=== PATIENT | female | born 1940 | race Caucasian/White ===

== ENCOUNTER 2017-10-11 10:05 | Emergency (ER) | payer MEDICARE, OTHER ==
--- NOTE | 2017-10-11 11:00 | EDM.PDOC ---
ED HPI GENERAL MEDICAL PROBLEM - General Chief Complaint: Back Pain or Injury Stated Complaint: BODYACHES Time Seen by Provider: 10/11/17 10:20 Source of Information: Reports: Patient History Limitations: Reports: No Limitations - History of Present Illness INITIAL COMMENTS - FREE TEXT/NARRATIVE: HISTORY AND PHYSICAL: History of present illness: Patient is a 77-year-old female who presents to the emergency room with complaints of low back pain. She states a week and a half ago she helped her up off the floor and used them proper body mechanics and started to have low back pain. Pain does not radiate (localized to lumbar area). Denies any numbness or tingling to extremities. Since that time she has had intermittent bouts of pain that waxes and wanes and appears to be more painful while performing her job duties (works at [employer]). She has been seeing a chiropractor who recommended she come to the emergency room for evaluation and pain management. She states she had some left over oxycodone from Dr. Christ Paez but does not like taking this medication as it makes "me looney". She denies any recent falls, trauma or injury. Denies any fever, chills, chest pain , shortness of breath or cough. Denies any visual changes, headache or diaphoresis. Denies any abdominal pain, nausea, vomiting, diarrhea, constipation or dysuria. Review of systems: As per history of present illness and below otherwise all systems reviewed and negative. Past medical history: As per history of present illness and as reviewed below otherwise noncontributory. Surgical history: As per history of present illness and as reviewed below otherwise noncontributory. Social history: No reported history of drug or alcohol abuse. Family history: As per history of present illness and as reviewed below otherwise noncontributory. Physical exam: General: Well-developed and well-nourished 77-year-old female. Alert and oriented. Nontoxic appearing and in no acute distress. HEENT: Atraumatic, normocephalic, pupils equal and reactive bilaterally, negative for conjunctival pallor or scleral icterus, hard of hearing and does wear hearing aid, mucous membranes moist, throat clear, neck supple, nontender, trachea midline. No drooling or trismus noted. No meningeal signs Lungs: Clear to auscultation, breath sounds equal bilaterally, chest nontender. Heart: S1S2, regular rate and rhythm without overt murmur Abdomen: Soft, nondistended, nontender. Negative for masses or hepatosplenomegaly. Negative for costovertebral tenderness. Pelvis: Stable nontender. Genitourinary: Deferred. Rectal: Deferred. Skin: Intact, warm, dry. No lesions or rashes noted. C-spine/Back: Patient does have kyphosis (normal variance). No pinpoint vertebral tenderness upon palpation. No crepitus, step-offs or obvious deformities. No fecal or urinary incontinence. Patient is ambulatory, slow movements, but without any difficulty. Extremities: Atraumatic, negative for cords or calf pain. Neurovascular unremarkable. Neuro: Awake, alert, oriented. Cranial nerves II through XII unremarkable. Cerebellum unremarkable. Motor and sensory unremarkable throughout. Exam nonfocal. Notes: During the interview the patient is very front dictation all and does not like to be asked multiple questions. She would like to receive pain medications and be discharged. I did ask that we do a lumbar x-ray at this time, she is reluctant but agreeable. Patient declines x-ray and would like to be discharged to home. We discussed appropriate follow-up with her primary care provider, she is agreeable. She does have oxycodone available to her at home but states this medication is too strong. We'll give her a limited amount of tramadol (#15, NRF) for pain management. She voices understanding and is agreeable to plan of care. Denies any further questions at this time. Diagnostics: Lumbar x-ray (declines) Therapeutics: Toradol IM Impression: Back Pain Plan: 1. Tylenol and/or ibuprofen as needed for pain management. Tramadol may be taken every 4-6 hours as needed. This medication may cause drowsiness so do not take it while driving or needing to be functioning outside of the house. 2. Please use proper body mechanics while performing her job duties or lifting. 3. Follow-up with your primary care provider, Dr. Christ Paez in the next 1-2 days. Return to the ED as needed and as discussed. Definitive disposition and diagnosis as appropriate pending reevaluation and review of above. Duration: Day(s): Location: Reports: Back Back Pain Score (Numeric/FACES): 10 - Related Data Allergies Allergy/AdvReac Type Severity Reaction Status Date / Time Sulfa (Sulfonamide Allergy Hives Verified 03/27/14 10:51 Antibiotics) Home Meds: Home Meds Acetaminophen with Codeine [Tylenol with Codeine #3 Tablet] 1 each PO TID #10 tablet 03/27/14 [Rx] Ciprofloxacin/Hydrocortisone [Cipro HC Otic Susp] 1 drop OT BID #1 bottle [Rx] Hydrochlorothiazide 25 mg PO DAILY 03/27/14 [History] Lansoprazole [Prevacid] 30 mg PO DAILY 03/27/14 [History] Metoprolol Succinate [Toprol XL] 50 mg PO DAILY 03/27/14 [History] ED ROS GENERAL - Review of Systems Review Of Systems: ROS reveals no pertinent complaints other than HPI. ED EXAM,LOWER BACK PAIN/INJURY - Physical Exam Exam: See Below (See dictation) Course - Vital Signs Last Recorded V/S: Last Vital Signs Temp 97.4 F 10/11/17 10:53 Pulse 74 10/11/17 10:53 Resp 18 10/11/17 10:53 BP 139/105 H 10/11/17 10:53 Pulse Ox 97 10/11/17 10:53 - Orders/Labs/Meds Orders: Active Orders 24 hr Category Date Time Status Lumbar Spine 2 or 3V [CR] Stat Exams 10/11/17 10:53 Ordered Meds: Medications Discontinued Medications Generic Name Dose Route Start Last Admin Trade Name Abdiasq PRN Reason Stop Dose Admin Ketorolac Tromethamine 30 mg 10/11/17 11:39 10/11/17 11:46 Toradol IM 10/11/17 11:40 30 mg ONETIME ONE Administration Departure - Departure Time of Disposition: 11:56 Disposition: Home, Self-Care 01 Clinical Impression: Back pain Qualifiers: Back pain location: low back pain Chronicity: unspecified Back pain laterality : midline Sciatica presence: without sciatica Qualified Code(s): M54.5 - Low back pain - Discharge Information Instructions: Back Pain, Adult, [id number] Referrals: PCP,None [Primary Care Provider] - Forms: ED Department Discharge Additional Instructions: The following information is given to patients seen in the emergency department who are being discharged to home. This information is to outline your options for follow-up care. We provide all patients seen in our emergency department with a follow-up referral. The need for follow-up, as well as the timing and circumstances, are variable depending upon the specifics of your emergency department visit. If you don't have a primary care physician on staff, we will provide you with a referral. We always advise you to contact your personal physician following an emergency department visit to inform them of the circumstance of the visit and for follow-up with them and/or the need for any referrals to a consulting specialist. The emergency department will also refer you to a specialist when appropriate. This referral assures that you have the opportunity for follow-up care with a specialist. All of these measure are taken in an effort to provide you with optimal care, which includes your follow-up. Under all circumstances we always encourage you to contact your private physician who remains a resource for coordinating your care. When calling for follow-up care, please make the office aware that this follow-up is from your recent emergency room visit. If for any reason you are refused follow-up, please contact the [facility] Emergency Department at and asked to speak to the emergency department charge nurse. [facility] [address] [place] [address] 1. Tylenol and/or ibuprofen as needed for pain management. Tramadol may be taken every 4-6 hours as needed. This medication may cause drowsiness so do not take it while driving or needing to be functioning outside of the house. 2. Please use proper body mechanics while performing her job duties or lifting. 3. Follow-up with your primary care provider, Dr. Christ Paez in the next 1-2 days. Return to the ED as needed and as discussed. - My Orders Last 24 Hours: My Active Orders 10/11/17 10:53 Lumbar Spine 2 or 3V [CR] Stat - Assessment/Plan Last 24 Hours: My Active Orders 10/11/17 10:53 Lumbar Spine 2 or 3V [CR] Stat
[2017-10-11] MEDS ORDERED: Ketorolac 30 MG/ML SDV IM ONE (11:39)
== END 2017-10-11 12:10 | disposition home or self-care (01) ==
LOC: MW.ED 10:05
DX: M54.5 Low back pain (principal); Z88.2 Allergy status to sulfonamides; Z79.899 Other long term (current) drug therapy
CPT/HCPCS: 96372; 99283; J1885

== ENCOUNTER 2018-09-25 02:53 | Emergency (ER) | payer MEDICARE, OTHER ==
[2018-09-25] MEDS ORDERED: Aluminum Hydroxide/Magnesium Hydroxide/Simethicone Susp 30 ML Cup ONE (03:28)
[2018-09-25] MEDS ORDERED: Ondansetron 4 MG/2 ML SDV ONE (03:28)
[2018-09-25] MEDS ORDERED: Metoclopramide Oral Soln 10 MG/10 ML UD Cup ONE (03:28)
[2018-09-25] MEDS ORDERED: Lidocaine 2% Viscous Solution 15 ML Cup ONE (03:29)
== END 2018-09-25 09:11 | disposition home or self-care (01) ==
LOC: MW.ED 02:53
DX: K52.9 Noninfective gastroenteritis and colitis, unspecified (principal); E86.0 Dehydration
CPT/HCPCS: 96361; 96374; 99282; 99284-25

== ENCOUNTER 2018-10-23 07:10 | Observation (INO) | payer MEDICARE, OTHER ==
--- NOTE | 2018-10-23 07:30 | EDM.PDOC ---
ED HPI GENERAL MEDICAL PROBLEM - General Chief Complaint: Respiratory Problem Stated Complaint: SIDE PAIN Time Seen by Provider: 10/23/18 07:21 - History of Present Illness INITIAL COMMENTS - FREE TEXT/NARRATIVE: HISTORY AND PHYSICAL: History of present illness: Patient's a 78-year-old white female history of hypertension who presents with concern of cough with posttussive emesis had some mild shortness of breath she occasionally has chest pain with this cough otherwise denies no reported fever chills or other complaints. She somewhat poor historian due to advanced age. She did not receive influenza immunization this year. Review of systems: As per history of present illness and below otherwise all systems reviewed and negative. Past medical history: As per history of present illness and as reviewed below otherwise noncontributory. Surgical history: As per history of present illness and as reviewed below otherwise noncontributory. Social history: No reported history of drug or alcohol abuse. Family history: As per history of present illness and as reviewed below otherwise noncontributory. Physical exam: HEENT: Atraumatic, normocephalic, pupils reactive, negative for conjunctival pallor or scleral icterus, mucous membranes moist, throat clear, neck supple, nontender, trachea midline. Lungs: Slightly coarse, breath sounds equal bilaterally, chest nontender. Heart: S1S2, regular, negative for clicks, rubs, or JVD. Abdomen: Soft, nondistended, nontender. Negative for masses or hepatosplenomegaly. Negative for costovertebral tenderness. Pelvis: Stable nontender. Genitourinary: Deferred. Rectal: Deferred. Extremities: Atraumatic, negative for cords or calf pain. Neurovascular unremarkable. Neuro: Awake, alert, oriented. Cranial nerves II through XII unremarkable. Cerebellum unremarkable. Motor and sensory unremarkable throughout. Exam nonfocal. Diagnostics: CBC CMP troponin PT/INR BNP influenza screen UA blood culture 2 lactic acid chest x-ray EKG Therapeutics: IV O2 monitor Impression: #1 dyspnea #2 pneumonitis #3 history of hypertension #4 history of posttussive emesis #5 atypical chest pain Definitive disposition and diagnosis as appropriate pending reevaluation and review of above. - Related Data Allergies Allergy/AdvReac Type Severity Reaction Status Date / Time Sulfa (Sulfonamide Allergy Hives Verified 10/23/18 07:26 Antibiotics) Home Meds: Home Meds hydroCHLOROthiazide [Hydrochlorothiazide] 25 mg PO DAILY 03/27/14 [History] Multivitamin [Multivitamins] 1 tab PO DAILY 09/25/18 [History] Past Medical History Musculoskeletal History: Reports: Back Pain, Chronic Social & Family History - Caffeine Use Caffeine Use: Reports: Other ED ROS GENERAL - Review of Systems Review Of Systems: ROS reveals no pertinent complaints other than HPI. ED EXAM, GENERAL - Physical Exam Exam: See Below (See dictation) Course - Vital Signs Last Recorded V/S: Last Vital Signs Temp 37.0 C 10/23/18 07:27 Pulse 106 H 10/23/18 07:27 Resp 16 10/23/18 07:27 BP 134/82 10/23/18 07:27 Pulse Ox 95 10/23/18 08:16 - Orders/Labs/Meds Orders: Active Orders 24 hr Category Date Time Status Cardiac Monitoring [RC] . DIRECTED Care 10/23/18 07:18 Active EKG Documentation Completion [RC] STAT Care 10/23/18 07:18 Active Oxygen Therapy, ED [RC] ASDIRECTED Care 10/23/18 08:17 Active B-TYPE NATRIURETIC PEPTIDE,BNP [CHEM] Stat Lab 10/23/18 08:14 Received CULTURE BLOOD [BC] Stat Lab 10/23/18 07:36 Received CULTURE BLOOD [BC] Stat Lab 10/23/18 08:14 Received Blood Culture x2 Reflex Set [OM.PC] Stat Oth 10/23/18 07:18 Ordered Labs: Laboratory Tests 10/23/18 10/23/18 10/23/18 Range/Units 07:36 07:36 07:36 WBC 13.91 H (4.0-11.0) K/uL RBC 3.77 L (4.30-5.90) M/uL Hgb 12.0 (12.0-16.0) g/dL Hct 37.2 (36.0-46.0) % MCV 98.7 H (80.0-98.0) fL MCH 31.8 (27.0-32.0) pg MCHC 32.3 (31.0-37.0) g/dL RDW Std Deviation 55.4 (28.0-62.0) fl RDW Coeff of Neris 15 (11.0-15.0) % Plt Count 228 (150-400) K/uL MPV 10.20 (7.40-12.00) fL Neut % (Auto) 85.7 H (48.0-80.0) % Lymph % (Auto) 7.5 L (16.0-40.0) % [place] % (Auto) 6.5 (0.0-15.0) % Eos % (Auto) 0.1 (0.0-7.0) % Baso % (Auto) 0.2 (0.0-1.5) % Neut # (Auto) 11.9 H (1.4-5.7) K/uL Lymph # (Auto) 1.0 (0.6-2.4) K/uL [place] # (Auto) 0.9 H (0.0-0.8) K/uL Eos # (Auto) 0.0 (0.0-0.7) K/uL Baso # (Auto) 0.0 (0.0-0.1) K/uL Nucleated RBC % 0.0 /100WBC Nucleated RBCs # 0 K/uL INR 1.02 Lactate 1.1 (0.20-2.00) mmol/L Sodium (136-145) mmol/L Potassium (3.5-5.1) mmol/L Chloride (98-107) mmol/L Carbon Dioxide (21.0-32.0) mmol/L BUN (7.0-18.0) mg/dL Creatinine (0.6-1.0) mg/dL Est Cr Clr Drug Dosing mL/min Estimated GFR (MDRD) ml/min Glucose (74-106) mg/dL Calcium (8.5-10.1) mg/dL Total Bilirubin (0.2-1.0) mg/dL AST (15-37) IU/L ALT (14-63) IU/L Alkaline Phosphatase (46-116) U/L Troponin I (0.000-0.056) ng/mL Total Protein (6.4-8.2) g/dL Albumin (3.4-5.0) g/dL Globulin (2.6-4.0) g/dL Albumin/Globulin Ratio (0.9-1.6) Urine Color Urine Appearance Urine pH (5.0-8.0) Ur Specific [place] (1.001-1.035) Urine Protein (NEGATIVE) mg/dL Urine Glucose (UA) (NEGATIVE) mg/dL Urine Ketones (NEGATIVE) mg/dL Urine Occult Blood (NEGATIVE) Urine Nitrite (NEGATIVE) Urine Bilirubin (NEGATIVE) Urine Urobilinogen (<2.0) EU/dL Ur Leukocyte Esterase (NEGATIVE) Urine RBC (0-2/HPF) Urine WBC (0-5/HPF) Ur Epithelial Cells (NONE-FEW) Urine Bacteria (NEGATIVE) 10/23/18 10/23/18 Range/Units 07:36 09:30 WBC (4.0-11.0) K/uL RBC (4.30-5.90) M/uL Hgb (12.0-16.0) g/dL Hct (36.0-46.0) % MCV (80.0-98.0) fL MCH (27.0-32.0) pg MCHC (31.0-37.0) g/dL RDW Std Deviation (28.0-62.0) fl RDW Coeff of Neris (11.0-15.0) % Plt Count (150-400) K/uL MPV (7.40-12.00) fL Neut % (Auto) (48.0-80.0) % Lymph % (Auto) (16.0-40.0) % [place] % (Auto) (0.0-15.0) % Eos % (Auto) (0.0-7.0) % Baso % (Auto) (0.0-1.5) % Neut # (Auto) (1.4-5.7) K/uL Lymph # (Auto) (0.6-2.4) K/uL [place] # (Auto) (0.0-0.8) K/uL Eos # (Auto) (0.0-0.7) K/uL Baso # (Auto) (0.0-0.1) K/uL Nucleated RBC % /100WBC Nucleated RBCs # K/uL INR Lactate (0.20-2.00) mmol/L Sodium 137 (136-145) mmol/L Potassium 3.0 L (3.5-5.1) mmol/L Chloride 95 L (98-107) mmol/L Carbon Dioxide 30.0 (21.0-32.0) mmol/L BUN 27 H (7.0-18.0) mg/dL Creatinine 1.1 H (0.6-1.0) mg/dL Est Cr Clr Drug Dosing 26.73 mL/min Estimated GFR (MDRD) 47.9 ml/min Glucose 139 H (74-106) mg/dL Calcium 9.1 (8.5-10.1) mg/dL Total Bilirubin 0.7 (0.2-1.0) mg/dL AST 19 (15-37) IU/L ALT 16 (14-63) IU/L Alkaline Phosphatase 111 (46-116) U/L Troponin I < 0.050 (0.000-0.056) ng/mL Total Protein 8.0 (6.4-8.2) g/dL Albumin 3.2 L (3.4-5.0) g/dL Globulin 4.8 H (2.6-4.0) g/dL Albumin/Globulin Ratio 0.7 L (0.9-1.6) Urine Color YELLOW Urine Appearance CLEAR Urine pH 5.5 (5.0-8.0) Ur Specific [place] 1.025 (1.001-1.035) Urine Protein TRACE H (NEGATIVE) mg/dL Urine Glucose (UA) NEGATIVE (NEGATIVE) mg/dL Urine Ketones NEGATIVE (NEGATIVE) mg/dL Urine Occult Blood TRACE-LYSED H (NEGATIVE) Urine Nitrite NEGATIVE (NEGATIVE) Urine Bilirubin NEGATIVE (NEGATIVE) Urine Urobilinogen 1.0 (<2.0) EU/dL Ur Leukocyte Esterase NEGATIVE (NEGATIVE) Urine RBC 0-2 (0-2/HPF) Urine WBC 0-2 (0-5/HPF) Ur Epithelial Cells FEW (NONE-FEW) Urine Bacteria FEW (NEGATIVE) Departure - Departure Time of Disposition: 09:59 Disposition: Refer to Observation Condition: Good Clinical Impression: Pneumonia - Discharge Information Referrals: PCP,None [Primary Care Provider] - Forms: ED Department Discharge - My Orders Last 24 Hours: My Active Orders 10/23/18 07:18 Cardiac Monitoring [RC] . DIRECTED EKG Documentation Completion [RC] STAT Blood Culture x2 Reflex Set [OM.PC] Stat 10/23/18 07:36 CULTURE BLOOD [BC] Stat 10/23/18 08:14 B-TYPE NATRIURETIC PEPTIDE,BNP [CHEM] Stat CULTURE BLOOD [BC] Stat 10/23/18 08:17 Oxygen Therapy, ED [RC] ASDIRECTED - Assessment/Plan Last 24 Hours: My Active Orders 10/23/18 07:18 Cardiac Monitoring [RC] . DIRECTED EKG Documentation Completion [RC] STAT Blood Culture x2 Reflex Set [OM.PC] Stat 10/23/18 07:36 CULTURE BLOOD [BC] Stat 10/23/18 08:14 B-TYPE NATRIURETIC PEPTIDE,BNP [CHEM] Stat CULTURE BLOOD [BC] Stat 10/23/18 08:17 Oxygen Therapy, ED [RC] ASDIRECTED
--- NOTE | 2018-10-23 07:55 | CR ---
INDICATION: Chest pain. Impression : One AP view. Mild leftward curve thoracic spine likely in part positional. Prominent central pulmonary arteries. Peripheral pulmonary artery is normal. Faint hazy opacity in the right upper lobe abutting the minor fissure could be some pneumonia. Two-view chest or CT recommended for further characterization. Dictated by Mati Jensen MD @ Oct 23 2018 7:53AM Signed by Dr. Mati Jensen @ Oct 23 2018 7:53AM
[2018-10-23 08:10] LABS: CHLORIDE,CL 95 mmol/L (98-107); SODIUM,NA 137 mmol/L (136-145)
[2018-10-23] MEDS ORDERED: Levofloxacin/Dextrose 5%-Water 750 MG in Premix Bag 1 BAG IV ONE (10:01)
[2018-10-23] MEDS ORDERED: Sodium Chloride 0.9% 2.5 ML Syringe FLUSH PRN (11:16)
[2018-10-23] MEDS ORDERED: Sodium Chloride 0.9% 10 ML Syringe FLUSH PRN (11:16)
[2018-10-23] MEDS ORDERED: Sodium Chloride 0.9% with KCl 1,000 ML IV SCH (14:30)
[2018-10-23] MEDS ORDERED: Ondansetron 4 MG/2 ML SDV IVPUSH PRN (14:49)
[2018-10-23] MEDS: Acetaminophen 325 MG Tab PO PRN ×2 (14:55→21:20)
--- NOTE | 2018-10-23 15:00 | PCM.HP ---
H&P History of Present Illness - General Date of Service: 10/23/18 Admit Problem/Dx: Admission Diagnosis/Problem Admission Diagnosis/Problem Pneumonia - History of Present Illness Initial Comments - Free Text/Narative: 78 yo female with pmh of hypertension who presented with cough productive of green sputum. Patient reports she would cough so hard she would vomit. She was found to have a leukocytosis of 13,910. She also reports subjective fevers and myalgias. In the ED CXR reported haziness in right upper lobe. chest Pain Score (Numeric/FACES): 4 - Related Data Allergies/Adverse Reactions: Allergies Allergy/AdvReac Type Severity Reaction Status Date / Time Sulfa (Sulfonamide Allergy Hives Verified 10/23/18 07:26 Antibiotics) Home Medications: Home Meds hydroCHLOROthiazide [Hydrochlorothiazide] 25 mg PO DAILY 03/27/14 [History] Multivitamin [Multivitamins] 1 tab PO DAILY 09/25/18 [History] Past Medical History HEENT History: Reports: Hard of Hearing, Impaired Vision Cardiovascular History: Reports: Hypertension Gastrointestinal History: Reports: Hiatal Hernia Musculoskeletal History: Reports: Back Pain, Chronic - Past Surgical History HEENT Surgical History: Reports: None Cardiovascular Surgical History: Reports: None GI Surgical History: Reports: None Musculoskeletal Surgical History: Reports: None Social & Family History - Family History Family Medical History: Noncontributory - Tobacco Use Smoking Status *Q: Unknown Ever Smoked - Caffeine Use Caffeine Use: Reports: Other - Recreational Drug Use Recreational Drug Use Frequency: Patient Refuses To Answer H&P Review of Systems - Review of Systems: Review Of Systems: ROS reveals no pertinent complaints other than HPI. Exam - Exam Exam: See Below - Vital Signs Vital Signs: Last Vital Signs Temp 37.7 C 10/23/18 10:45 Pulse 118 H 10/23/18 10:45 Resp 18 10/23/18 10:45 BP 114/76 10/23/18 10:45 Pulse Ox 93 L 10/23/18 10:45 Weight: 40.823 kg - Exam General: Alert HEENT: Mucosa Moist & Green Neck: Supple Lungs: Normal Respiratory Effort, Decreased Breath Sounds Cardiovascular: Regular Rate, Regular Rhythm GI/Abdominal Exam: Soft, Non-Tender Extremities: Non-Tender, No Pedal Edema Skin: Warm, Dry, Intact - Patient Data Lab Results Last 24 hrs: Laboratory Results - last 24 hr 10/23/18 10/23/18 10/23/18 Range/Units 07:36 07:36 07:36 WBC 13.91 H (4.0-11.0) K/uL RBC 3.77 L (4.30-5.90) M/uL Hgb 12.0 (12.0-16.0) g/dL Hct 37.2 (36.0-46.0) % MCV 98.7 H (80.0-98.0) fL MCH 31.8 (27.0-32.0) pg MCHC 32.3 (31.0-37.0) g/dL RDW Std Deviation 55.4 (28.0-62.0) fl RDW Coeff of Neris 15 (11.0-15.0) % Plt Count 228 (150-400) K/uL MPV 10.20 (7.40-12.00) fL Neut % (Auto) 85.7 H (48.0-80.0) % Lymph % (Auto) 7.5 L (16.0-40.0) % [place] % (Auto) 6.5 (0.0-15.0) % Eos % (Auto) 0.1 (0.0-7.0) % Baso % (Auto) 0.2 (0.0-1.5) % Neut # (Auto) 11.9 H (1.4-5.7) K/uL Lymph # (Auto) 1.0 (0.6-2.4) K/uL [place] # (Auto) 0.9 H (0.0-0.8) K/uL Eos # (Auto) 0.0 (0.0-0.7) K/uL Baso # (Auto) 0.0 (0.0-0.1) K/uL Nucleated RBC % 0.0 /100WBC Nucleated RBCs # 0 K/uL INR 1.02 Lactate 1.1 (0.20-2.00) mmol/L Sodium (136-145) mmol/L Potassium (3.5-5.1) mmol/L Chloride (98-107) mmol/L Carbon Dioxide (21.0-32.0) mmol/L BUN (7.0-18.0) mg/dL Creatinine (0.6-1.0) mg/dL Est Cr Clr Drug Dosing mL/min Estimated GFR (MDRD) ml/min Glucose (74-106) mg/dL Calcium (8.5-10.1) mg/dL Total Bilirubin (0.2-1.0) mg/dL AST (15-37) IU/L ALT (14-63) IU/L Alkaline Phosphatase (46-116) U/L Troponin I (0.000-0.056) ng/mL B-Natriuretic Peptide (<100) PG/ML Total Protein (6.4-8.2) g/dL Albumin (3.4-5.0) g/dL Globulin (2.6-4.0) g/dL Albumin/Globulin Ratio (0.9-1.6) Urine Color Urine Appearance Urine pH (5.0-8.0) Ur Specific [place] (1.001-1.035) Urine Protein (NEGATIVE) mg/dL Urine Glucose (UA) (NEGATIVE) mg/dL Urine Ketones (NEGATIVE) mg/dL Urine Occult Blood (NEGATIVE) Urine Nitrite (NEGATIVE) Urine Bilirubin (NEGATIVE) Urine Urobilinogen (<2.0) EU/dL Ur Leukocyte Esterase (NEGATIVE) Urine RBC (0-2/HPF) Urine WBC (0-5/HPF) Ur Epithelial Cells (NONE-FEW) Urine Bacteria (NEGATIVE) 10/23/18 10/23/18 10/23/18 Range/Units 07:36 08:14 09:30 WBC (4.0-11.0) K/uL RBC (4.30-5.90) M/uL Hgb (12.0-16.0) g/dL Hct (36.0-46.0) % MCV (80.0-98.0) fL MCH (27.0-32.0) pg MCHC (31.0-37.0) g/dL RDW Std Deviation (28.0-62.0) fl RDW Coeff of Neris (11.0-15.0) % Plt Count (150-400) K/uL MPV (7.40-12.00) fL Neut % (Auto) (48.0-80.0) % Lymph % (Auto) (16.0-40.0) % [place] % (Auto) (0.0-15.0) % Eos % (Auto) (0.0-7.0) % Baso % (Auto) (0.0-1.5) % Neut # (Auto) (1.4-5.7) K/uL Lymph # (Auto) (0.6-2.4) K/uL [place] # (Auto) (0.0-0.8) K/uL Eos # (Auto) (0.0-0.7) K/uL Baso # (Auto) (0.0-0.1) K/uL Nucleated RBC % /100WBC Nucleated RBCs # K/uL INR Lactate (0.20-2.00) mmol/L Sodium 137 (136-145) mmol/L Potassium 3.0 L (3.5-5.1) mmol/L Chloride 95 L (98-107) mmol/L Carbon Dioxide 30.0 (21.0-32.0) mmol/L BUN 27 H (7.0-18.0) mg/dL Creatinine 1.1 H (0.6-1.0) mg/dL Est Cr Clr Drug Dosing 26.73 mL/min Estimated GFR (MDRD) 47.9 ml/min Glucose 139 H (74-106) mg/dL Calcium 9.1 (8.5-10.1) mg/dL Total Bilirubin 0.7 (0.2-1.0) mg/dL AST 19 (15-37) IU/L ALT 16 (14-63) IU/L Alkaline Phosphatase 111 (46-116) U/L Troponin I < 0.050 (0.000-0.056) ng/mL B-Natriuretic Peptide 55 (<100) PG/ML Total Protein 8.0 (6.4-8.2) g/dL Albumin 3.2 L (3.4-5.0) g/dL Globulin 4.8 H (2.6-4.0) g/dL Albumin/Globulin Ratio 0.7 L (0.9-1.6) Urine Color YELLOW Urine Appearance CLEAR Urine pH 5.5 (5.0-8.0) Ur Specific [place] 1.025 (1.001-1.035) Urine Protein TRACE H (NEGATIVE) mg/dL Urine Glucose (UA) NEGATIVE (NEGATIVE) mg/dL Urine Ketones NEGATIVE (NEGATIVE) mg/dL Urine Occult Blood TRACE-LYSED H (NEGATIVE) Urine Nitrite NEGATIVE (NEGATIVE) Urine Bilirubin NEGATIVE (NEGATIVE) Urine Urobilinogen 1.0 (<2.0) EU/dL Ur Leukocyte Esterase NEGATIVE (NEGATIVE) Urine RBC 0-2 (0-2/HPF) Urine WBC 0-2 (0-5/HPF) Ur Epithelial Cells FEW (NONE-FEW) Urine Bacteria FEW (NEGATIVE) Result Diagrams: 10/24/18 05:52 10/24/18 05:52 Rodolfo Results Last 24 hrs: Microbiology 10/23/18 07:38 Influenza Type A Antigen Screen - Final Nasopharyngeal Swab NEGATIVE INFLUENZA A VIRUS AG REFERENCE RANGE: NEGATIVE Influenza Type B Antigen Screen - Final NEGATIVE INFLUENZA B VIRUS AG REFERENCE RANGE: NEGATIVE Problem List Initiated/Reviewed/Updated: Yes Orders Last 24hrs: Active Orders 24 hr Category Date Time Status Patient Status [ADT] Stat ADT 10/23/18 10:02 Active Cardiac Monitoring [RC] . DIRECTED Care 10/23/18 07:18 Active Oxygen Therapy [RC] PRN Care 10/23/18 14:49 Ordered Telemetry Monitoring [Cardiac Monitoring] [RC] . Care 10/23/18 11:55 Active DIRECTED Up ad Jazmyn [RC] ASDIRECTED Care 10/23/18 14:49 Ordered VTE/DVT Education [RC] PER UNIT ROUTINE Care 10/23/18 14:49 Ordered Vital Signs [RC] Q4H Care 10/23/18 14:49 Ordered Regular Diet [DIET] Diet 10/23/18 Lunch Active BASIC METABOLIC PANEL,BMP [CHEM] AM Lab 10/24/18 05:11 Ordered CBC WITH AUTO DIFF [HEME] AM Lab 10/24/18 05:11 Ordered CULTURE BLOOD [BC] Stat Lab 10/23/18 07:36 Received CULTURE BLOOD [BC] Stat Lab 10/23/18 08:14 Received CULTURE SPUTUM + SMEAR [RM] Stat Lab 10/23/18 14:49 Ordered Acetaminophen [Tylenol] Med 10/23/18 14:27 Active 650 mg PO Q6H PRN Heparin Sodium Med 10/23/18 15:00 Ordered 5,000 units SUBCUT Q12H Levofloxacin/Dextrose 5%-Water [Levaquin in D5W 750 MG/ Med 10/24/18 10:00 Ordered 150 ML] 750 mg Premix Bag 1 bag IV Q24H Ondansetron [Zofran] Med 10/23/18 14:49 Ordered 4 mg IVPUSH Q4H PRN Sodium Chloride 0.9% [Saline Flush] Med 10/23/18 11:16 Active 10 ml FLUSH ASDIRECTED PRN Sodium Chloride 0.9% [Saline Flush] Med 10/23/18 11:16 Active 2.5 ml FLUSH ASDIRECTED PRN Sodium Chloride 0.9% with KCl [Normal Saline with 40 Med 10/23/18 14:30 Active mEq KCl] 1,000 ml IV ASDIRECTED Blood Culture x2 Reflex Set [OM.PC] Stat Oth 10/23/18 07:18 Ordered Convert IV to Saline Lock [OM.PC] Routine Oth 10/23/18 11:16 Ordered Resuscitation Status Routine Resus Stat 10/23/18 14:49 Ordered Medication Orders Acetaminophen (Tylenol) 650 mg PO Q6H PRN PRN Reason: Pain Heparin Sodium (Porcine) (Heparin Sodium) 5,000 units SUBCUT Q12H MARY Potassium Chloride/Sodium Chloride (Normal Saline With 40 Meq Kcl) 1,000 mls @ 75 mls/hr IV ASDIRECTED MARY Stop: 10/24/18 03:49 Levofloxacin/Dextrose 750 mg/ (Premix) 150 mls @ 100 mls/hr IV Q24H MARY Ondansetron HCl (Zofran) 4 mg IVPUSH Q4H PRN PRN Reason: Nausea Sodium Chloride (Saline Flush) 10 ml FLUSH ASDIRECTED PRN PRN Reason: Keep Vein Open Sodium Chloride (Saline Flush) 2.5 ml FLUSH ASDIRECTED PRN PRN Reason: Keep Vein Open Assessment/Plan Comment:: 78 yo female admitted for community acquired pneumonia. We will treat with Levaquin.
[2018-10-23] MEDS: Heparin Sodium 5,000 Units/ML Vial SUBCUT SCH (15:32)
[2018-10-24] MEDS: traMADol 50 MG Tab PO PRN ×2 (03:36→20:35)
[2018-10-24] MEDS: Heparin Sodium 5,000 Units/ML Vial SUBCUT SCH ×2 (03:36→15:16)
[2018-10-24 06:44] LABS: CHLORIDE,CL 102 mmol/L (98-107); SODIUM,NA 139 mmol/L (136-145)
[2018-10-24] MEDS: Acetaminophen 325 MG Tab PO PRN ×3 (07:45→22:01)
[2018-10-24] MEDS ORDERED: Potassium Chloride 10% 20 MEQ/15 ML Soln 30 ML UD Cup PO ONE (07:55)
[2018-10-24] MEDS ORDERED: Levofloxacin/Dextrose 5%-Water 750 MG in Premix Bag 1 BAG IV SCH (10:00)
[2018-10-24] MEDS: guaiFENesin 100 MG/5 ML Soln 5 ML UD Cup PO PRN ×2 (10:14→23:09)
--- NOTE | 2018-10-24 10:15 | PCM.PN ---
- General Info Date of Service: 10/24/18 Subjective Update: Complaining of a dry cough, feels like she has sputum stuck and is having a hard time coughing it out. Doesnt feel short of breath. No fever, nausea or vomiting. Complains of R sided discomfort when she coughs. - Review of Systems General: Reports: Other (see hpi) - Patient Data Vitals - Most Recent: Last Vital Signs Temp 37.8 C 10/24/18 07:00 Pulse 84 10/24/18 07:00 Resp 16 10/24/18 07:00 BP 116/77 10/24/18 07:00 Pulse Ox 93 L 10/24/18 09:56 Weight - Most Recent: 40.823 kg I&O - Last 24 Hours: Intake & Output 10/23/18 10/24/18 10/24/18 22:59 06:59 14:59 Intake Total 240 490 Output Total 150 300 Balance 90 190 Lab Results Last 24 Hours: Laboratory Results - last 24 hr 10/23/18 10/24/18 10/24/18 Range/Units 08:14 05:52 05:52 WBC 11.01 H (4.0-11.0) K/uL RBC 3.33 L (4.30-5.90) M/uL Hgb 10.4 L (12.0-16.0) g/dL Hct 32.8 L (36.0-46.0) % MCV 98.5 H (80.0-98.0) fL MCH 31.2 (27.0-32.0) pg MCHC 31.7 (31.0-37.0) g/dL RDW Std Deviation 54.0 (28.0-62.0) fl RDW Coeff of Neris 15 (11.0-15.0) % Plt Count 209 (150-400) K/uL MPV 10.00 (7.40-12.00) fL Neut % (Auto) 84.4 H (48.0-80.0) % Lymph % (Auto) 8.0 L (16.0-40.0) % [place] % (Auto) 7.3 (0.0-15.0) % Eos % (Auto) 0.0 (0.0-7.0) % Baso % (Auto) 0.3 (0.0-1.5) % Neut # (Auto) 9.3 H (1.4-5.7) K/uL Lymph # (Auto) 0.9 (0.6-2.4) K/uL [place] # (Auto) 0.8 (0.0-0.8) K/uL Eos # (Auto) 0.0 (0.0-0.7) K/uL Baso # (Auto) 0.0 (0.0-0.1) K/uL Nucleated RBC % 0.0 /100WBC Nucleated RBCs # 0 K/uL Sodium 139 (136-145) mmol/L Potassium 3.4 L (3.5-5.1) mmol/L Chloride 102 (98-107) mmol/L Carbon Dioxide 28.7 (21.0-32.0) mmol/L BUN 23 H (7.0-18.0) mg/dL Creatinine 0.9 (0.6-1.0) mg/dL Est Cr Clr Drug Dosing 32.66 mL/min Estimated GFR (MDRD) > 60.0 ml/min Glucose 143 H (74-106) mg/dL Calcium 8.6 (8.5-10.1) mg/dL B-Natriuretic Peptide 55 (<100) PG/ML Rodolfo Results Last 24 Hours: Microbiology 10/23/18 08:14 Aerobic Blood Culture - Preliminary Blood - Venous - Lab Draw NO GROWTH AFTER 1 DAY Anaerobic Blood Culture - Preliminary NO GROWTH AFTER 1 DAY 10/23/18 07:36 Aerobic Blood Culture - Preliminary Blood - Venous NO GROWTH AFTER 1 DAY Anaerobic Blood Culture - Preliminary NO GROWTH AFTER 1 DAY 10/23/18 07:38 Influenza Type A Antigen Screen - Final Nasopharyngeal Swab NEGATIVE INFLUENZA A VIRUS AG REFERENCE RANGE: NEGATIVE Influenza Type B Antigen Screen - Final NEGATIVE INFLUENZA B VIRUS AG REFERENCE RANGE: NEGATIVE Med Orders - Current: Current Medications Acetaminophen (Tylenol) 650 mg PO Q6H PRN PRN Reason: Pain Last Admin: 10/24/18 07:45 Dose: 650 mg Guaifenesin (Robitussin) 200 mg PO Q4H PRN PRN Reason: Cough Heparin Sodium (Porcine) (Heparin Sodium) 5,000 units SUBCUT Q12H MARY Last Admin: 10/24/18 03:36 Dose: 5,000 units Levofloxacin/Dextrose 750 mg/ (Premix) 150 mls @ 100 mls/hr IV Q48H [facility] Ondansetron HCl (Zofran) 4 mg IVPUSH Q4H PRN PRN Reason: Nausea Sodium Chloride (Saline Flush) 10 ml FLUSH ASDIRECTED PRN PRN Reason: Keep Vein Open Sodium Chloride (Saline Flush) 2.5 ml FLUSH ASDIRECTED PRN PRN Reason: Keep Vein Open Tramadol HCl (Ultram) 50 mg PO Q6H PRN PRN Reason: Pain Last Admin: 10/24/18 03:36 Dose: 50 mg Discontinued Medications Levofloxacin/Dextrose 750 mg/ (Premix) 150 mls @ 100 mls/hr IV ONETIME ONE Stop: 10/23/18 11:30 Last Admin: 10/23/18 10:13 Dose: 100 mls/hr Potassium Chloride/Sodium Chloride (Normal Saline With 40 Meq Kcl) 1,000 mls @ 75 mls/hr IV ASDIRECTED MARY Stop: 10/24/18 03:49 Last Admin: 10/23/18 14:55 Dose: 75 mls/hr Potassium Chloride (Potassium Chloride) 20 meq PO ONETIME ONE Stop: 10/24/18 07:56 Last Admin: 10/24/18 08:35 Dose: 20 meq - Exam General: Alert, Oriented HEENT: Pupils Equal, Pupils Reactive, EOMI, Mucous Membr. Moist/[place] Neck: Supple Lungs: Clear to Auscultation, Normal Respiratory Effort Cardiovascular: Regular Rate Extremities: Normal Inspection, Normal Range of Motion, Non-Tender, No Pedal Edema, Normal Capillary Refill Peripheral Pulses: 2+: Dorsalis Pedis (L), Dorsalis Pedis (R) Psy/Mental Status: Alert, Normal Affect, Normal Mood - Problem List Review Problem List Initiated/Reviewed/Updated: Yes - My Orders Last 24 Hours: My Active Orders 10/24/18 08:34 guaiFENesin [Robitussin] 200 mg PO Q4H PRN - Plan Plan:: Assessment: #1. Community acquired pneumonia #2. Leukocytosis #3. Hypokalemia #4. cough Plan: #1. Continue IV levaquin #2. Encourage incentive spirometer, ambulation #3. Guaifenesin as ordered #4. Anticipate dc 1-2 days pending improvement
[2018-10-25] MEDS: Heparin Sodium 5,000 Units/ML Vial SUBCUT SCH ×2 (04:00→15:27)
[2018-10-25] MEDS: Acetaminophen 325 MG Tab PO PRN ×3 (05:54→21:40)
[2018-10-25 08:34] LABS: CHLORIDE,CL 101 mmol/L (98-107); SODIUM,NA 138 mmol/L (136-145)
[2018-10-25] MEDS ORDERED: Levofloxacin/Dextrose 5%-Water 750 MG in Premix Bag 1 BAG IV SCH (10:00)
[2018-10-25] MEDS: guaiFENesin 100 MG/5 ML Soln 5 ML UD Cup PO PRN (11:28)
[2018-10-25] MEDS: Omeprazole 20 MG Cap.CR PO SCH (11:28)
--- NOTE | 2018-10-25 12:31 | PCM.PN ---
- General Info Date of Service: 10/25/18 Subjective Update: Says she was up all night secondary to coughing. She denies fever, pain, nausea. Saturating well on room air - Review of Systems General: Reports: Other (see hpi) - Patient Data Vitals - Most Recent: Last Vital Signs Temp 36.8 C 10/25/18 08:00 Pulse 104 H 10/25/18 08:00 Resp 14 10/25/18 08:00 BP 93/70 10/25/18 08:00 Pulse Ox 93 L 10/25/18 08:00 Weight - Most Recent: 40.823 kg I&O - Last 24 Hours: Intake & Output 10/24/18 10/25/18 10/25/18 22:59 06:59 14:59 Intake Total 860 200 Output Total 400 Balance 860 -200 Lab Results Last 24 Hours: Laboratory Results - last 24 hr 10/25/18 10/25/18 Range/Units 08:00 08:00 WBC 9.88 (4.0-11.0) K/uL RBC 3.40 L (4.30-5.90) M/uL Hgb 10.8 L (12.0-16.0) g/dL Hct 33.7 L (36.0-46.0) % MCV 99.1 H (80.0-98.0) fL MCH 31.8 (27.0-32.0) pg MCHC 32.0 (31.0-37.0) g/dL RDW Std Deviation 53.9 (28.0-62.0) fl RDW Coeff of Neris 15 (11.0-15.0) % Plt Count 224 (150-400) K/uL MPV 9.90 (7.40-12.00) fL Add Manual Diff YES Neutrophils % (Manual) 69 (48.0-80.0) % Band Neutrophils % 15 % Lymphocytes % (Manual) 12 L (16.0-40.0) % Monocytes % (Manual) 4 (0.0-15.0) % Nucleated RBC % 0.0 /100WBC Absolute Seg Neuts 6.8 H (1.4-5.7) Band Neutrophils # 1.5 Lymphocytes # (Manual) 1.2 (0.6-2.4) Monocytes # (Manual) 0.4 (0.0-0.8) Nucleated RBCs # 0 K/uL Sodium 138 (136-145) mmol/L Potassium 3.8 (3.5-5.1) mmol/L Chloride 101 (98-107) mmol/L Carbon Dioxide 26.9 (21.0-32.0) mmol/L BUN 22 H (7.0-18.0) mg/dL Creatinine 0.9 (0.6-1.0) mg/dL Est Cr Clr Drug Dosing 32.66 mL/min Estimated GFR (MDRD) > 60.0 ml/min Glucose 136 H (74-106) mg/dL Calcium 8.6 (8.5-10.1) mg/dL Rodolfo Results Last 24 Hours: Microbiology 10/23/18 08:14 Aerobic Blood Culture - Preliminary Blood - Venous - Lab Draw NO GROWTH AFTER 2 DAYS Anaerobic Blood Culture - Preliminary NO GROWTH AFTER 2 DAYS 10/23/18 07:36 Aerobic Blood Culture - Preliminary Blood - Venous NO GROWTH AFTER 2 DAYS Anaerobic Blood Culture - Preliminary NO GROWTH AFTER 2 DAYS Med Orders - Current: Current Medications Acetaminophen (Tylenol) 650 mg PO Q6H PRN PRN Reason: Pain Last Admin: 10/25/18 05:54 Dose: 650 mg Benzonatate (Tessalon Perles) 100 mg PO TID PRN PRN Reason: Cough Guaifenesin (Robitussin) 200 mg PO Q4H PRN PRN Reason: Cough Last Admin: 10/25/18 11:28 Dose: 200 mg Heparin Sodium (Porcine) (Heparin Sodium) 5,000 units SUBCUT Q12H [facility] Last Admin: 10/25/18 04:00 Dose: 5,000 units Levofloxacin/Dextrose 750 mg/ (Premix) 150 mls @ 100 mls/hr IV Q48H MARY Last Admin: 10/25/18 11:30 Dose: 100 mls/hr Omeprazole (Omeprazole) 40 mg PO ACBREAKFAST [facility] Last Admin: 10/25/18 11:28 Dose: 40 mg Ondansetron HCl (Zofran) 4 mg IVPUSH Q4H PRN PRN Reason: Nausea Sodium Chloride (Saline Flush) 10 ml FLUSH ASDIRECTED PRN PRN Reason: Keep Vein Open Sodium Chloride (Saline Flush) 2.5 ml FLUSH ASDIRECTED PRN PRN Reason: Keep Vein Open Tramadol HCl (Ultram) 50 mg PO Q6H PRN PRN Reason: Pain Last Admin: 10/24/18 03:36 Dose: 50 mg Discontinued Medications Levofloxacin/Dextrose 750 mg/ (Premix) 150 mls @ 100 mls/hr IV ONETIME ONE Stop: 10/23/18 11:30 Last Admin: 10/23/18 10:13 Dose: 100 mls/hr Potassium Chloride/Sodium Chloride (Normal Saline With 40 Meq Kcl) 1,000 mls @ 75 mls/hr IV ASDIRECTED [facility] Stop: 10/24/18 03:49 Last Admin: 10/23/18 14:55 Dose: 75 mls/hr Levofloxacin/Dextrose 750 mg/ (Premix) 150 mls @ 100 mls/hr IV Q48H [facility] Last Admin: 10/24/18 19:32 Dose: Not Given Potassium Chloride (Potassium Chloride) 20 meq PO ONETIME ONE Stop: 10/24/18 07:56 Last Admin: 10/24/18 08:35 Dose: 20 meq - Exam General: Alert, Oriented HEENT: Pupils Equal, Pupils Reactive, EOMI, Mucous Membr. Moist/[place] Neck: Supple Lungs: Clear to Auscultation, Normal Respiratory Effort Cardiovascular: Regular Rate, Regular Rhythm GI/Abdominal Exam: Normal Bowel Sounds, Soft, Non-Tender, No Organomegaly, No Distention, No Abnormal Bruit, No Mass, Pelvis Stable Back Exam: Normal Inspection, Full Range of Motion Extremities: Normal Inspection, Normal Range of Motion, Non-Tender, No Pedal Edema, Normal Capillary Refill Peripheral Pulses: 2+: Dorsalis Pedis (L), Dorsalis Pedis (R) Skin: Warm, Dry, Intact Wound/Incisions: Healing Well Neurological: No New Focal Deficit Psy/Mental Status: Alert, Normal Affect, Normal Mood - Problem List Review Problem List Initiated/Reviewed/Updated: Yes - My Orders Last 24 Hours: My Active Orders 10/25/18 10:18 Communication Order [RC] ROUTINE 10/25/18 10:50 Omeprazole 40 mg PO ACBREAKFAST 10/25/18 11:49 Benzonatate [Tessalon Perles] 100 mg PO TID PRN - Plan Plan:: Assessment: #1. Community acquired pneumonia #2. Cough Plan: #1. Continue IV abx #2. Tessalon perles ordered for cough #3. Encourage IS, ambulation #4. Anticipate dc 1-2 days
[2018-10-25] MEDS: Benzonatate 100 MG Cap PO PRN ×2 (12:41→20:45)
[2018-10-26] MEDS: Heparin Sodium 5,000 Units/ML Vial SUBCUT SCH (04:00)
[2018-10-26] MEDS: Omeprazole 20 MG Cap.CR PO SCH (06:39)
[2018-10-26] MEDS: Benzonatate 100 MG Cap PO PRN (13:37)
--- NOTE | 2018-10-26 13:52 | PCM.DCSUM1 ---
Discharge Summary - Hospital Course Free Text/Narrative:: Admission date: 10/23/2018 Discharge date: 10/26/2018 Hospital course: 78F hx of HTN that presented with sob, cough dx w/ community acquired pneumonia. She was placed on IV Levaquin. Patient responded to this well. On the day of discharge, she felt comfortable going home, endorsing improvement in breathing and cough. Will continue Levaquin as outpatient. Tessalon perles PRN. Note for work was given. She is to f/u with her PCP. - Discharge Data Discharge Date: 10/26/18 Discharge Disposition: Home, Self-Care 01 Condition: Good - Patient Instructions Diet: Usual Diet as Tolerated Activity: As Tolerated Notify Provider of: Fever, Increased Pain, Nausea and/or Vomiting - Discharge Plan Prescriptions/Med Rec: Benzonatate [Tessalon Perle] 100 mg PO TID PRN #15 capsule PRN Reason: Cough levoFLOXacin [Levaquin] 750 mg PO Q48H 4 Days #2 tab Home Medications: Home Meds hydroCHLOROthiazide [Hydrochlorothiazide] 25 mg PO DAILY 03/27/14 [History] Multivitamin [Multivitamins] 1 tab PO DAILY 09/25/18 [History] Benzonatate [Tessalon Perle] 100 mg PO TID PRN #15 capsule 10/26/18 [Rx] levoFLOXacin [Levaquin] 750 mg PO Q48H 4 Days #2 tab 10/26/18 [Rx] Patient Handouts: Levofloxacin tablets, Benzonatate capsules, Community- Acquired Pneumonia, Adult, [id number] Referrals: [facility] [Outside] Christ Paez MD [Physician] - 11/02/18 10:45 am - Discharge Summary/Plan Comment DC Time >30 min.: No - Patient Data Vitals - Most Recent: Last Vital Signs Temp 36.8 C 10/26/18 12:00 Pulse 110 H 10/26/18 12:00 Resp 16 10/26/18 12:00 BP 124/64 10/26/18 12:00 Pulse Ox 96 10/26/18 12:00 Weight - Most Recent: 40.823 kg I&O - Last 24 hours: Intake & Output 10/25/18 10/26/18 10/26/18 22:59 06:59 14:59 Intake Total 630 550 100 Output Total 350 Balance 630 200 100 SUDHA Results - Last 24 hrs: Microbiology 10/23/18 08:14 Aerobic Blood Culture - Preliminary Blood - Venous - Lab Draw NO GROWTH AFTER 3 DAYS Anaerobic Blood Culture - Preliminary NO GROWTH AFTER 3 DAYS 10/23/18 07:36 Aerobic Blood Culture - Preliminary Blood - Venous NO GROWTH AFTER 3 DAYS Anaerobic Blood Culture - Preliminary NO GROWTH AFTER 3 DAYS Med Orders - Current: Current Medications Acetaminophen (Tylenol) 650 mg PO Q6H PRN PRN Reason: Pain Last Admin: 10/25/18 21:40 Dose: 650 mg Benzonatate (Tessalon Perles) 100 mg PO TID PRN PRN Reason: Cough Last Admin: 10/26/18 13:37 Dose: 100 mg Guaifenesin (Robitussin) 200 mg PO Q4H PRN PRN Reason: Cough Last Admin: 10/25/18 11:28 Dose: 200 mg Heparin Sodium (Porcine) (Heparin Sodium) 5,000 units SUBCUT Q12H MARY Last Admin: 10/26/18 04:00 Dose: 5,000 units Levofloxacin/Dextrose 750 mg/ (Premix) 150 mls @ 100 mls/hr IV Q48H MARY Last Admin: 10/25/18 11:30 Dose: 100 mls/hr Omeprazole (Omeprazole) 40 mg PO ACBREAKFAST [facility] Last Admin: 10/26/18 06:39 Dose: 40 mg Ondansetron HCl (Zofran) 4 mg IVPUSH Q4H PRN PRN Reason: Nausea Sodium Chloride (Saline Flush) 10 ml FLUSH ASDIRECTED PRN PRN Reason: Keep Vein Open Sodium Chloride (Saline Flush) 2.5 ml FLUSH ASDIRECTED PRN PRN Reason: Keep Vein Open Tramadol HCl (Ultram) 50 mg PO Q6H PRN PRN Reason: Pain Last Admin: 10/24/18 03:36 Dose: 50 mg Discontinued Medications Levofloxacin/Dextrose 750 mg/ (Premix) 150 mls @ 100 mls/hr IV ONETIME ONE Stop: 10/23/18 11:30 Last Admin: 10/23/18 10:13 Dose: 100 mls/hr Potassium Chloride/Sodium Chloride (Normal Saline With 40 Meq Kcl) 1,000 mls @ 75 mls/hr IV ASDIRECTED MARY Stop: 10/24/18 03:49 Last Admin: 10/23/18 14:55 Dose: 75 mls/hr Levofloxacin/Dextrose 750 mg/ (Premix) 150 mls @ 100 mls/hr IV Q48H MARY Last Admin: 10/24/18 19:32 Dose: Not Given Potassium Chloride (Potassium Chloride) 20 meq PO ONETIME ONE Stop: 10/24/18 07:56 Last Admin: 10/24/18 08:35 Dose: 20 meq
== END 2018-10-26 14:10 | disposition home or self-care (01) ==
LOC: MW.ED 07:10 → MW.MS 10:11
PROVIDERS: ADMIT Internal Medicine; ATTEND Internal Medicine
DX: J18.9 Pneumonia, unspecified organism (principal); I10 Essential (primary) hypertension; M54.9 Dorsalgia, unspecified; G89.29 Other chronic pain; Z88.2 Allergy status to sulfonamides; Z79.899 Other long term (current) drug therapy
CPT/HCPCS: 36415; 71045; 80048; 80053; 81001; 83605; 83880; 84484; 85025; 85610; 87040; 87804; 93005; 94667; 96372; 96374; 96376; 99284; A4217; A9270; G0378; J1644; J1956; J3480

== ENCOUNTER 2018-12-07 09:31 | Emergency (ER) | payer MEDICARE, OTHER ==
--- NOTE | 2018-12-07 09:51 | EDM.PDOC ---
ED HPI GENERAL MEDICAL PROBLEM - General Chief Complaint: ENT Problem Stated Complaint: SORE IN MOUTH Time Seen by Provider: 12/07/18 09:32 Source of Information: Reports: Patient History Limitations: Reports: No Limitations - History of Present Illness INITIAL COMMENTS - FREE TEXT/NARRATIVE: History of present illness: []Patient presents with a sore on her lower lip that spreading to the side of her head this in the past and had some medicine that helped but does not know the name of it. She denies any difficulty swallowing or breathing and is tolerating fluids or food. Review of systems: As per history of present illness and below otherwise all systems reviewed and negative. Past medical history: As per history of present illness and as reviewed below otherwise noncontributory. Surgical history: As per history of present illness and as reviewed below otherwise noncontributory. Social history: No reported history of drug or alcohol abuse. Family history: As per history of present illness and as reviewed below otherwise noncontributory. Physical exam: General: Well developed, well nourished in NAD HEENT: Atraumatic, normocephalic, pupils reactive, negative for conjunctival pallor or scleral icterus, mucous membranes moist, throat clear, neck supple, nontender, trachea midline. She is edentulous but wears false teeth Erythematous area on the lower inner left lip, no edema, no stridor. Lungs: Clear to auscultation, breath sounds equal bilaterally, chest nontender. Heart: S1S2, regular, negative for clicks, rubs, or JVD. Abdomen: NABS, Soft, nondistended, nontender. Negative for masses or hepatosplenomegaly. Negative for costovertebral tenderness. Pelvis: Stable nontender. Genitourinary: Deferred. Rectal: Deferred. Extremities: Atraumatic, negative for cords or calf pain. Neurovascular unremarkable. Neuro: Awake, alert, oriented. Cranial nerves II through XII unremarkable. Cerebellum unremarkable. Motor and sensory unremarkable throughout. Exam nonfocal. Skin:warm and dry Diagnostics: None Therapeutics: None ED Course: Stable Impression: Aphthous ulcers Prescriptions: Magic mouth wash Plan: Take meds as directed, follow up with your primary care physician, return to ER if symptoms worsen or change. Definitive disposition and diagnosis as appropriate pending reevaluation and review of above. - Related Data Allergies Allergy/AdvReac Type Severity Reaction Status Date / Time Sulfa (Sulfonamide Allergy Hives Verified 12/07/18 09:40 Antibiotics) Home Meds: Home Meds hydroCHLOROthiazide [Hydrochlorothiazide] 25 mg PO DAILY 03/27/14 [History] Multivitamin [Multivitamins] 1 tab PO DAILY 09/25/18 [History] Benzonatate [Tessalon Perle] 100 mg PO TID PRN #15 capsule 10/26/18 [Rx] Aspirin [Ecotrin EC] 81 mg PO DAILY 12/07/18 [History] Diphenhyd/Lidocaine/Nystatin [First-Bxn Mouthwash] 237 ml MM TID PRN #1 bottle 12/07/18 [Rx] Metoprolol Succinate [Toprol XL 50mg] 50 mg PO DAILY 12/07/18 [History] Past Medical History HEENT History: Reports: Hard of Hearing, Impaired Vision Cardiovascular History: Reports: Hypertension Gastrointestinal History: Reports: Hiatal Hernia Musculoskeletal History: Reports: Back Pain, Chronic - Past Surgical History HEENT Surgical History: Reports: None Cardiovascular Surgical History: Reports: None GI Surgical History: Reports: None Musculoskeletal Surgical History: Reports: None Social & Family History - Family History Family Medical History: Noncontributory - Tobacco Use Smoking Status *Q: Never Smoker - Caffeine Use Caffeine Use: Reports: None - Recreational Drug Use Recreational Drug Use: No ED ROS ENT - Review of Systems Review Of Systems: See Below ED EXAM, ENT - Physical Exam Exam: See Below Course - Vital Signs Last Recorded V/S: Last Vital Signs Temp 97.0 F 12/07/18 09:42 Pulse 62 12/07/18 09:42 Resp 18 12/07/18 09:42 BP 137/74 12/07/18 09:42 Pulse Ox 94 L 12/07/18 09:42 Departure - Departure Time of Disposition: 09:51 Disposition: Home, Self-Care 01 Condition: Good Clinical Impression: Aphthous ulcer - Discharge Information *PRESCRIPTION DRUG MONITORING PROGRAM REVIEWED*: No *COPY OF PRESCRIPTION DRUG MONITORING REPORT IN PATIENT MARCO ANTONIO: No Prescriptions: Diphenhyd/Lidocaine/Nystatin [First-Bxn Mouthwash] 237 ml MM TID PRN #1 bottle PRN Reason: Pain Referrals: PCP,None [Primary Care Provider] - Forms: ED Department Discharge Additional Instructions: The following information is given to patients seen in the emergency department who are being discharged to home. This information is to outline your options for follow-up care. We provide all patients seen in our emergency department with a follow-up referral. The need for follow-up, as well as the timing and circumstances, are variable depending upon the specifics of your emergency department visit. If you don't have a primary care physician on staff, we will provide you with a referral. We always advise you to contact your personal physician following an emergency department visit to inform them of the circumstance of the visit and for follow-up with them and/or the need for any referrals to a consulting specialist. The emergency department will also refer you to a specialist when appropriate. This referral assures that you have the opportunity for follow-up care with a specialist. All of these measure are taken in an effort to provide you with optimal care, which includes your follow-up. Under all circumstances we always encourage you to contact your private physician who remains a resource for coordinating your care. When calling for follow-up care, please make the office aware that this follow-up is from your recent emergency room visit. If for any reason you are refused follow-up, please contact the [facility] Emergency Department at and asked to speak to the emergency department charge nurse. Take meds as directed, follow up with your primary care physician, return to ER if symptoms worsen or change. [facility] [address] [place] [id number]
== END 2018-12-07 10:08 | disposition home or self-care (01) ==
LOC: MW.ED 09:31
DX: K12.0 Recurrent oral aphthae (principal); I10 Essential (primary) hypertension; Z88.2 Allergy status to sulfonamides; Z79.899 Other long term (current) drug therapy; Z79.82 Long term (current) use of aspirin
CPT/HCPCS: 99282

== ENCOUNTER 2019-01-09 10:15 | Emergency (ER) | payer OTHER, MEDICARE ==
--- NOTE | 2019-01-09 10:31 | EDM.PDOC ---
ED HPI GENERAL MEDICAL PROBLEM - General Stated Complaint: HEAD INJURY Time Seen by Provider: 01/09/19 10:16 Source of Information: Reports: Patient History Limitations: Reports: No Limitations - History of Present Illness INITIAL COMMENTS - FREE TEXT/NARRATIVE: HISTORY AND PHYSICAL: Trauma alert was called upon patient arrival due to her taking psdy-wib-wajenof aspirin and hitting her head. Dr Mckeon was directly involved in this case History of present illness: Patient is a 78-year-old female who presents to the emergency room with complaints of an abrasion to her posterior scalp after hitting her head on a shelf. 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 When she stood up she hit the back of her head on the shelf that was above her. She denies passing out or blacking out. She does have a superficial abrasion to her posterior scalp. States she did not want to come in for evaluation but her boss encouraged her to come. Patient currently offers no systemic complaints. Patient denies any fever, chills, headache, change in vision, syncope or near syncope. Denies any chest pain, back pain, shortness of breath or cough. Denies any GI or symptoms. Patient has been eating and drinking appropriately. Review of systems: As per history of present illness and below otherwise all systems reviewed and negative. Past medical history: As per history of present illness and as reviewed below otherwise noncontributory. Surgical history: As per history of present illness and as reviewed below otherwise noncontributory. Social history: See social history for further information Family history: As per history of present illness and as reviewed below otherwise noncontributory. Physical exam: General: Well-developed and well nourished 78-year-old female. Alert and oriented. Nontoxic and in no acute distress. HEENT: Nontender with superficial abrasion noted to the posterior scalp, normocephalic, pupils equal and reactive bilaterally, negative for conjunctival pallor or scleral icterus, mucous membranes moist, TMs normal bilaterally, throat clear, neck supple, nontender, trachea midline. No drooling or trismus noted. No meningeal signs. No hot potato voice noted. Lungs: Clear to auscultation, breath sounds equal bilaterally, chest nontender. Heart: S1S2, regular rate and rhythm without overt murmur Abdomen: Soft, nondistended, nontender. Negative for masses. Negative for costovertebral tenderness. Pelvis: Stable nontender. C-spine/Back: No pinpoint vertebral tenderness upon palpation. No crepitus, step -offs or obvious deformities. Normal age-related variance of kyphosis. Patient is ambulatory into the emergency room without difficulty or deficit. Able to lift toes up towards her nose and push downward with good equal force bilaterally. Denies any urinary or fecal incontinence. Denies any numbness, tingling or saddle paresthesia. Skin: Intact, warm, dry. No lesions or rashes noted. Extremities: Atraumatic, moves all extremities per self without difficulty or deficits, negative for cords or calf pain. Neurovascular unremarkable. Neuro: Awake, alert, oriented. Cranial nerves II through XII unremarkable. Cerebellum unremarkable. Motor and sensory unremarkable throughout. Exam nonfocal. Notes: Patient is agreeable to a head CT at this time. Vital signs are stable and have been reviewed by me. Besides the abrasion to her scalp she offers no other complaints or concerns. Head CT shows no acute findings. Wound care was provided. Supportive care measures were reviewed and discussed. Voices understanding and is agreeable to plan of care. Denies any further questions or concerns at this time. Diagnostics: Head CT Therapeutics: Wound care Prescription: None Impression: Head injury Abrasion Plan: 1. Please review and follow the head injury instructions that we discussed in her printed in your discharge packet. 2. Limit any physical activities and follow cognitive rest (decrease screen time , reading, tv, etc..) over the next 24 hours pending resolution of symptoms. 3. Tylenol and/or ibuprofen as needed for pain management. 4. Follow-up with your primary care provider as we discussed. Return to the ED as needed and as discussed. Definitive disposition and diagnosis as appropriate pending reevaluation and review of above. Onset: Today head Pain Score (Numeric/FACES): 1 - Related Data Allergies Allergy/AdvReac Type Severity Reaction Status Date / Time Sulfa (Sulfonamide Allergy Hives Verified 01/09/19 10:24 Antibiotics) Home Meds: Home Meds hydroCHLOROthiazide [Hydrochlorothiazide] 25 mg PO DAILY 03/27/14 [History] Multivitamin [Multivitamins] 1 tab PO DAILY 09/25/18 [History] Benzonatate [Tessalon Perle] 100 mg PO TID PRN #15 capsule 10/26/18 [Rx] Aspirin [Ecotrin EC] 81 mg PO DAILY 12/07/18 [History] Diphenhyd/Lidocaine/Nystatin [First-Bxn Mouthwash] 237 ml MM TID PRN #1 bottle 12/07/18 [Rx] Metoprolol Succinate [Toprol XL 50mg] 50 mg PO DAILY 12/07/18 [History] Past Medical History HEENT History: Reports: Hard of Hearing, Impaired Vision Cardiovascular History: Reports: Hypertension Gastrointestinal History: Reports: Hiatal Hernia Musculoskeletal History: Reports: Back Pain, Chronic - Past Surgical History HEENT Surgical History: Reports: None Cardiovascular Surgical History: Reports: None GI Surgical History: Reports: None Musculoskeletal Surgical History: Reports: None Social & Family History - Family History Family Medical History: Noncontributory - Caffeine Use Caffeine Use: Reports: None ED ROS GENERAL - Review of Systems Review Of Systems: ROS reveals no pertinent complaints other than HPI. ED EXAM, HEAD INJURY - Physical Exam Exam: See Below (See dictation) Course - Vital Signs Last Recorded V/S: Last Vital Signs Temp 97.6 F 01/09/19 11:30 Pulse 75 01/09/19 11:30 Resp 16 01/09/19 11:30 BP 152/88 H 01/09/19 11:30 Pulse Ox 96 01/09/19 11:30 - Orders/Labs/Meds Meds: Medications Discontinued Medications Generic Name Dose Route Start Last Admin Trade Name Freq PRN Reason Stop Dose Admin Bacitracin 1 dose 01/09/19 11:09 01/09/19 11:29 Bacitracin Oint 1 Gm TOP 01/09/19 11:10 1 dose ONETIME ONE Administration Departure - Departure Time of Disposition: 12:07 Disposition: Home, Self-Care 01 Clinical Impression: Head injury Qualifiers: Encounter type: initial encounter Qualified Code(s): S09.90XA - Unspecified injury of head, initial encounter Abrasion head Qualifiers: Encounter type: initial encounter Qualified Code(s): S00.91XA - Abrasion of unspecified part of head, initial encounter - Discharge Information Instructions: Head Injury, Adult, [id number] Referrals: PCP,Unknown [Primary Care Provider] - Additional Instructions: The following information is given to patients seen in the emergency department who are being discharged to home. This information is to outline your options for follow-up care. We provide all patients seen in our emergency department with a follow-up referral. The need for follow-up, as well as the timing and circumstances, are variable depending upon the specifics of your emergency department visit. If you don't have a primary care physician on staff, we will provide you with a referral. We always advise you to contact your personal physician following an emergency department visit to inform them of the circumstance of the visit and for follow-up with them and/or the need for any referrals to a consulting specialist. The emergency department will also refer you to a specialist when appropriate. This referral assures that you have the opportunity for follow-up care with a specialist. All of these measure are taken in an effort to provide you with optimal care, which includes your follow-up. Under all circumstances we always encourage you to contact your private physician who remains a resource for coordinating your care. When calling for follow-up care, please make the office aware that this follow-up is from your recent emergency room visit. If for any reason you are refused follow-up, please contact the [facility] Emergency Department at and asked to speak to the emergency department charge nurse. [facility] [address] [place] [address] [id number] [facility] [address] [place] [id number] 1. Please review and follow the head injury instructions that we discussed in her printed in your discharge packet. 2. Limit any physical activities and follow cognitive rest (decrease screen time , reading, tv, etc..) over the next 24 hours pending resolution of symptoms. 3. Tylenol and/or ibuprofen as needed for pain management. 4. Follow-up with your primary care provider as we discussed. Return to the ED as needed and as discussed.
[2019-01-09] MEDS ORDERED: Bacitracin Oint 1 GM U/D Packet TOP ONE (11:09)
--- NOTE | 2019-01-09 12:05 | CT ---
INDICATION: Hip posterior left side of head on shelf at work. TECHNIQUE: Scanning of the head was performed without IV contrast material. Coronal and sagittal reconstructions were obtained COMPARISON: None. FINDINGS: No acute hemorrhage or positive mass effect is demonstrated. No calvarial or obvious facial fracture is identified. The visualized paranasal and mastoid sinuses are clear. The ventricles and other subarachnoid spaces are within normal limits for the patient`s age. There is nonspecific decreased attenuation in the cerebral white matter which is most likely due to aging/chronic microvascular ischemic disease. Basilar artery dolichoectasia is noted. IMPRESSION: 1. Negative for acute traumatic abnormality. 2. Nonspecific cerebral white matter disease which is most likely due to aging/chronic microvascular ischemia. 3. Basilar artery dolichoectasia. Please note that all CT scans at this facility use dose modulation, iterative reconstruction, and/or weight-based dosing when appropriate to reduce radiation dose to as low as reasonably achievable. Dictated by Joselito Craft MD @ Jan 09 2019 12:00PM Signed by Dr. Joselito Craft @ Jan 09 2019 12:04PM
== END 2019-01-09 12:25 | disposition home or self-care (01) ==
LOC: MW.ED 10:15
DX: S00.01XA Abrasion of scalp, initial encounter (principal); I10 Essential (primary) hypertension; Z88.2 Allergy status to sulfonamides; Z79.899 Other long term (current) drug therapy; Z79.82 Long term (current) use of aspirin; W22.8XXA Striking against or struck by other objects, initial encounter
CPT/HCPCS: 70450; 70450-26; 99283; 99284-25

== ENCOUNTER 2019-03-19 20:13 | Emergency (ER) | payer MEDICARE, OTHER ==
[2019-03-19] MEDS ORDERED: Glucagon,Human Recombinant 1 MG Vial IM ONE (20:14)
[2019-03-19] MEDS ORDERED: Glucagon,Human Recombinant 1 MG Vial ONE (20:15)
--- NOTE | 2019-03-19 20:15 | EDM.PDOC ---
ED HPI GENERAL MEDICAL PROBLEM - General Stated Complaint: PT SPOKE TO NURSE Time Seen by Provider: 03/19/19 20:15 Source of Information: Reports: Patient - History of Present Illness INITIAL COMMENTS - FREE TEXT/NARRATIVE: HISTORY AND PHYSICAL: History of present illness: [Patient presents with robust sensation, she was eating some soup with a chunk of meat which she was unable to pass on arrival she was unable to pass water, we did provide glucagon IV and had called Dr. Quintero for consult thereafter however in the interim the glucagon ultimately worked and she had past meat shortly prior to Dr. Quintero's arrival No fever nausea vomiting chills sweats no chest pain shortness breath headache dizziness palpitation no bowel or urine symptoms Review of systems: As per history of present illness and below otherwise all systems reviewed and negative. Past medical history: As per history of present illness and as reviewed below otherwise noncontributory. Surgical history: As per history of present illness and as reviewed below otherwise noncontributory. Social history: No reported history of drug or alcohol abuse. Family history: As per history of present illness and as reviewed below otherwise noncontributory. Physical exam: HEENT: Atraumatic, normocephalic, pupils reactive, negative for conjunctival pallor or scleral icterus, mucous membranes moist, throat clear, neck supple, nontender, trachea midline. Lungs: Clear to auscultation, breath sounds equal bilaterally, chest nontender. Heart: S1S2, regular, negative for clicks, rubs, or JVD. Abdomen: Soft, nondistended, nontender. Negative for masses or hepatosplenomegaly. Negative for costovertebral tenderness. Pelvis: Stable nontender. Genitourinary: Deferred. Rectal: Deferred. Extremities: Atraumatic, negative for cords or calf pain. Neurovascular unremarkable. Neuro: Awake, alert, oriented. Cranial nerves II through XII unremarkable. Cerebellum unremarkable. Motor and sensory unremarkable throughout. Exam nonfocal. Diagnostics: [CBC BMP ] Therapeutics: [glucagon Surgery consult Dr. Quintero ] Impression: [ food bolus stuck in esophagus cleared ] Definitive disposition and diagnosis as appropriate pending reevaluation and review of above. throat Pain Score (Numeric/FACES): 10 - Related Data Allergies Allergy/AdvReac Type Severity Reaction Status Date / Time Sulfa (Sulfonamide Allergy Hives Verified 03/19/19 20:30 Antibiotics) Home Meds: Home Meds hydroCHLOROthiazide [Hydrochlorothiazide] 25 mg PO DAILY 03/27/14 [History] Multivitamin [Multivitamins] 1 tab PO DAILY 09/25/18 [History] Aspirin [Ecotrin EC] 81 mg PO DAILY 12/07/18 [History] Metoprolol Succinate [Toprol XL 50mg] 50 mg PO DAILY 12/07/18 [History] Past Medical History HEENT History: Reports: Hard of Hearing, Impaired Vision Cardiovascular History: Reports: Hypertension Gastrointestinal History: Reports: Hiatal Hernia Musculoskeletal History: Reports: Back Pain, Chronic - Infectious Disease History Infectious Disease History: Reports: Chicken Pox - Past Surgical History HEENT Surgical History: Reports: None Cardiovascular Surgical History: Reports: None GI Surgical History: Reports: None Musculoskeletal Surgical History: Reports: None Social & Family History - Family History Family Medical History: Noncontributory - Caffeine Use Caffeine Use: Reports: None ED ROS GENERAL - Review of Systems Review Of Systems: See Below ED EXAM, GENERAL - Physical Exam Exam: See Below Course - Vital Signs Last Recorded V/S: Last Vital Signs Temp 97.4 F 03/19/19 21:22 Pulse 80 03/19/19 21:22 Resp 16 03/19/19 21:22 BP 127/77 03/19/19 21:22 Pulse Ox 95 03/19/19 21:22 - Orders/Labs/Meds Labs: Laboratory Tests 03/19/19 03/19/19 Range/Units 20:17 20:17 WBC 5.09 (4.0-11.0) K/uL RBC 3.84 L (4.30-5.90) M/uL Hgb 11.8 L (12.0-16.0) g/dL Hct 37.6 (36.0-46.0) % MCV 97.9 (80.0-98.0) fL MCH 30.7 (27.0-32.0) pg MCHC 31.4 (31.0-37.0) g/dL RDW Std Deviation 55.7 (28.0-62.0) fl RDW Coeff of Neris 16 H (11.0-15.0) % Plt Count 182 (150-400) K/uL MPV 10.50 (7.40-12.00) fL Neut % (Auto) 52.7 (48.0-80.0) % Lymph % (Auto) 33.6 (16.0-40.0) % Arroyo % (Auto) 9.2 (0.0-15.0) % Eos % (Auto) 3.7 (0.0-7.0) % Baso % (Auto) 0.8 (0.0-1.5) % Neut # (Auto) 2.7 (1.4-5.7) K/uL Lymph # (Auto) 1.7 (0.6-2.4) K/uL Arroyo # (Auto) 0.5 (0.0-0.8) K/uL Eos # (Auto) 0.2 (0.0-0.7) K/uL Baso # (Auto) 0.0 (0.0-0.1) K/uL Nucleated RBC % 0.0 /100WBC Nucleated RBCs # 0 K/uL Sodium 140 (136-145) mmol/L Potassium 3.9 (3.5-5.1) mmol/L Chloride 104 (98-107) mmol/L Carbon Dioxide 27.9 (21.0-32.0) mmol/L BUN 27 H (7.0-18.0) mg/dL Creatinine 1.1 H (0.6-1.0) mg/dL Est Cr Clr Drug Dosing TNP Estimated GFR (MDRD) 47.8 ml/min Glucose 146 H (74-106) mg/dL Calcium 9.0 (8.5-10.1) mg/dL Meds: Medications Discontinued Medications Generic Name Dose Route Start Last Admin Trade Name Nita PRN Reason Stop Dose Admin Glucagon 1 mg 03/19/19 20:14 Glucagen IM 03/19/19 20:15 ONETIME ONE Glucagon Confirm 03/19/19 20:15 03/19/19 20:20 Glucagen Administered 03/19/19 20:16 Not Given Dose 1 mg .ROUTE .STK-MED ONE Glucagon 1 mg 03/19/19 20:18 03/19/19 20:19 Glucagen IVPUSH 03/19/19 20:19 1 mg ONETIME ONE Administration Departure - Departure Time of Disposition: 21:24 Disposition: Home, Self-Care 01 Condition: Good Clinical Impression: Globus sensation - Discharge Information Referrals: PCP,None [Primary Care Provider] - Additional Instructions: Clear liquid diet 24 hours Follow-up with Dr. Quintero general surgery in 2 weeks through his clinic Call phone number below to schedule appropriate follow-up [facility] - General Surgery [address], [address] [place] [address] The following information is given to patients seen in the emergency department who are being discharged to home. This information is to outline your options for follow-up care. We provide all patients seen in our emergency department with a follow-up referral. The need for follow-up, as well as the timing and circumstances, are variable depending upon the specifics of your emergency department visit. If you don't have a primary care physician on staff, we will provide you with a referral. We always advise you to contact your personal physician following an emergency department visit to inform them of the circumstance of the visit and for follow-up with them and/or the need for any referrals to a consulting specialist. The emergency department will also refer you to a specialist when appropriate. This referral assures that you have the opportunity for follow-up care with a specialist. All of these measure are taken in an effort to provide you with optimal care, which includes your follow-up. Under all circumstances we always encourage you to contact your private physician who remains a resource for coordinating your care. When calling for follow-up care, please make the office aware that this follow-up is from your recent emergency room visit. If for any reason you are refused follow-up, please contact the [facility] emergency department at and asked to speak to the emergency department charge nurse.
[2019-03-19] MEDS ORDERED: Glucagon,Human Recombinant 1 MG Vial IVPUSH ONE (20:18)
[2019-03-19 20:40] LABS: BLOOD UREA NITROGEN,BUN 27 mg/dL (7.0-18.0); CARBON DIOXIDE,CO2 27.9 mmol/L (21.0-32.0); CHLORIDE,CL 104 mmol/L (98-107); GLUCOSE RANDOM 146 mg/dL (74-106); POTASSIUM,K 3.9 mmol/L (3.5-5.1); SODIUM,NA 140 mmol/L (136-145)
--- NOTE | 2019-03-19 21:29 | PCM.SN ---
- Free Text/Narrative Note: pt seen, chart reviewed; food stucked, resolved w glucagon; would send home on gen liquid diet X 24 hrs then advance; fu w me 1 - 2 wks prn [id number]
--- NOTE | 2019-03-20 03:32 | CONS ---
DATE OF CONSULTATION: 03/19/2019 DATE OF : 1940 PRIMARY CARE PHYSICIAN: None PCP REFERRING PHYSICIAN: Marcelo Lopez REASON FOR CONSULTATION: This is consult from Dr. Lopez. Concerning question is food stuck in the throat. HISTORY OF PRESENT ILLNESS: The patient is an 79-year-old, frail, petite, elderly complaining about 2-hour history of food stuck in the upper throat. The patient remarks she was drinking and then suddenly something stuck there. Cannot get out, cannot get down, cannot even swallow her saliva, and sought help in the emergency room. Surgery was then consulted. The patient remarked it happened 10 years ago. PAST MEDICAL HISTORY: Denied diabetes, LA, CVA. The patient has hypertension. ALLERGIES: Please refer to Nursing for details. MEDICATIONS: Please refer to Nursing for details. PAST SURGICAL HISTORY: The patient had normal vaginal delivery x1 many years ago. SOCIAL HISTORY: Denied tobacco or alcohol abuse. FAMILY HISTORY: Noncontributory. PHYSICAL EXAMINATION: GENERAL: A very frail, petite, elderly, in no acute distress. HEENT: Normocephalic and atraumatic. Sclerae are anicteric. LUNGS: Clear to auscultation. HEART: Regular rate and rhythm. ABDOMEN: Soft, nondistended. No pulsating, tender midline abdominal structure. Abdomen is nontender. The patient was given 1 mg of glucagon about 15 minutes ago, and the patient now remarked that she felt the blockade has gone. We gave her a glass of water. She swallowed without problem. IMPRESSION: Food stuck in the throat, and looks like it resolved with medical treatment. The patient will go home on liquid diet for 24 hours, then advance as tolerated. Have a followup appointment with me on an as-needed basis in 1 to 2 weeks. As always, thank you for the kind referral. LAVONNE PANIAGUA /[id number]
== END 2019-03-19 21:39 | disposition home or self-care (01) ==
LOC: MW.ED 20:13
DX: T18.128A Food in esophagus causing other injury, initial encounter (principal); R09.89 Other specified symptoms and signs involving the circulatory and respiratory systems; I10 Essential (primary) hypertension; Z88.2 Allergy status to sulfonamides; Z79.899 Other long term (current) drug therapy; Z79.82 Long term (current) use of aspirin; Y93.89 Activity, other specified
CPT/HCPCS: 36415; 80048; 85025; 96374; 99283; J1610

== ENCOUNTER 2021-11-03 18:51 | Inpatient (IN) | payer MEDICARE, OTHER ==
[2021-11-03] MEDS ORDERED: traMADol 50 MG Tab PO ONE (19:57)
[2021-11-03] MEDS ORDERED: Morphine 2 MG/ML SYRINGE IVPUSH ONE (21:41)
[2021-11-03] MEDS ORDERED: Sodium Chloride 0.9% 10 ML Syringe FLUSH PRN (21:41)
[2021-11-03] MEDS ORDERED: Sodium Chloride 0.9% 2.5 ML Syringe FLUSH PRN (21:41)
[2021-11-03 22:56] LABS: CARBON DIOXIDE,CO2 27.2 mmol/L (21.0-32.0); POTASSIUM,K 3.8 mmol/L (3.5-5.1)
[2021-11-03 23:06] LABS: ESTIMATED GFR 39.2 ml/min
[2021-11-04] MEDS ORDERED: HYDROmorphone 1 MG/ML Syringe IVPUSH PRN (00:18)
[2021-11-04] MEDS ORDERED: Acetaminophen 325 MG Tab PO PRN (00:19)
[2021-11-04] MEDS: Heparin Sodium 5,000 Units/ML Vial SUBCUT SCH ×3 (00:38→23:39)
[2021-11-04] MEDS: oxyCODONE 5 MG Tab PO PRN ×4 (01:38→23:48)
[2021-11-04] MEDS ORDERED: Baclofen 10 MG Tab ONE (02:52)
[2021-11-04] MEDS: Omeprazole 20 MG Cap.CR PO SCH (06:33)
[2021-11-04 07:40] LABS: ESTIMATED GFR 47.6 ml/min
[2021-11-04] MEDS: Metoprolol Succinate 50 MG Tab.ER PO SCH (10:59)
[2021-11-04] MEDS: Aspirin 81 MG Tab.EC PO SCH (10:59)
[2021-11-04] MEDS: Hydrochlorothiazide 25 MG Tab PO SCH (10:59)
[2021-11-05] MEDS: Omeprazole 20 MG Cap.CR PO SCH (06:56)
[2021-11-05] MEDS: Hydrochlorothiazide 25 MG Tab PO SCH (08:10)
[2021-11-05] MEDS: Aspirin 81 MG Tab.EC PO SCH (08:11)
[2021-11-05] MEDS: Metoprolol Succinate 50 MG Tab.ER PO SCH (08:11)
[2021-11-05] MEDS ORDERED: HYDROmorphone 1 MG/ML Syringe IVPUSH PRN (11:05)
[2021-11-05] MEDS: Acetaminophen 500 MG Tab PO SCH ×4 (11:52→23:40)
[2021-11-05] MEDS: Heparin Sodium 5,000 Units/ML Vial SUBCUT SCH ×2 (11:53→23:30)
[2021-11-05] MEDS: oxyCODONE 5 MG Tab PO PRN ×2 (17:18→23:30)
[2021-11-06] MEDS: Acetaminophen 500 MG Tab PO SCH ×4 (04:36→23:22)
[2021-11-06] MEDS: oxyCODONE 5 MG Tab PO PRN ×3 (06:26→23:28)
[2021-11-06] MEDS: Omeprazole 20 MG Cap.CR PO SCH ×2 (06:26→06:46)
[2021-11-06] MEDS: Hydrochlorothiazide 25 MG Tab PO SCH (09:26)
[2021-11-06] MEDS: Aspirin 81 MG Tab.EC PO SCH (09:27)
[2021-11-06] MEDS: Metoprolol Succinate 50 MG Tab.ER PO SCH (09:29)
[2021-11-06] MEDS: Heparin Sodium 5,000 Units/ML Vial SUBCUT SCH (11:58)
[2021-11-06] MEDS ORDERED: Alum Hydro/Mag Hydro/Simeth XS 15 ML, Lidocaine 2% 5 ML PO ONE ×2 (14:10)
[2021-11-07] MEDS: Heparin Sodium 5,000 Units/ML Vial SUBCUT SCH ×2 (00:31→12:28)
[2021-11-07] MEDS: Acetaminophen 500 MG Tab PO SCH ×3 (05:36→17:16)
[2021-11-07] MEDS: Omeprazole 20 MG Cap.CR PO SCH (06:38)
[2021-11-07] MEDS: Hydrochlorothiazide 25 MG Tab PO SCH (09:36)
[2021-11-07] MEDS: Metoprolol Succinate 50 MG Tab.ER PO SCH (09:36)
[2021-11-07] MEDS: Aspirin 81 MG Tab.EC PO SCH (09:36)
[2021-11-08] MEDS: Heparin Sodium 5,000 Units/ML Vial SUBCUT SCH ×2 (00:50→13:41)
[2021-11-08] MEDS: Acetaminophen 500 MG Tab PO SCH ×4 (00:50→17:02)
[2021-11-08] MEDS: Omeprazole 20 MG Cap.CR PO SCH (08:22)
[2021-11-08] MEDS: Aspirin 81 MG Tab.EC PO SCH (08:22)
[2021-11-08] MEDS: Hydrochlorothiazide 25 MG Tab PO SCH (08:22)
[2021-11-08] MEDS: Metoprolol Succinate 50 MG Tab.ER PO SCH (08:23)
[2021-11-08] MEDS: oxyCODONE 5 MG Tab PO PRN (15:31)
[2021-11-09] MEDS: Acetaminophen 500 MG Tab PO SCH ×5 (02:39→23:38)
[2021-11-09] MEDS: Heparin Sodium 5,000 Units/ML Vial SUBCUT SCH ×3 (02:39→23:38)
[2021-11-09] MEDS: Omeprazole 20 MG Cap.CR PO SCH (06:31)
[2021-11-09] MEDS: Metoprolol Succinate 50 MG Tab.ER PO SCH (08:40)
[2021-11-09] MEDS: Hydrochlorothiazide 25 MG Tab PO SCH (08:41)
[2021-11-09] MEDS: Aspirin 81 MG Tab.EC PO SCH (08:41)
[2021-11-10] MEDS: Acetaminophen 500 MG Tab PO SCH (06:22)
[2021-11-10] MEDS: Omeprazole 20 MG Cap.CR PO SCH ×2 (06:23→06:30)
[2021-11-10] MEDS: Hydrochlorothiazide 25 MG Tab PO SCH (08:15)
[2021-11-10] MEDS: Aspirin 81 MG Tab.EC PO SCH (08:16)
[2021-11-10] MEDS: Metoprolol Succinate 50 MG Tab.ER PO SCH (08:17)
[2021-11-10] MEDS ORDERED: Bisacodyl 10 MG Supp RECTAL PRN (08:56)
[2021-11-10] MEDS ORDERED: Acetaminophen 500 MG Tab PO PRN (10:30)
[2021-11-10] MEDS: Docusate Sodium 100 MG Cap PO SCH ×2 (11:22→21:19)
[2021-11-10] MEDS: Polyethylene Glycol 3350 Powder 17 GM Packet PO SCH (11:22)
[2021-11-10] MEDS: Calcium Carbonate/Vitamin D3 1500 MG-400 Units Tab PO SCH (11:25)
[2021-11-10] MEDS: Heparin Sodium 5,000 Units/ML Vial SUBCUT SCH (12:48)
[2021-11-11] MEDS: Heparin Sodium 5,000 Units/ML Vial SUBCUT SCH ×2 (00:34→12:02)
[2021-11-11] MEDS: Omeprazole 20 MG Cap.CR PO SCH (06:39)
[2021-11-11 07:14] LABS: CARBON DIOXIDE,CO2 31.3 mmol/L (21.0-32.0)
[2021-11-11 07:35] LABS: POTASSIUM,K 3.3 mmol/L (3.5-5.1)
[2021-11-11 07:36] LABS: ESTIMATED GFR 47.6 ml/min
[2021-11-11] MEDS: Metoprolol Succinate 50 MG Tab.ER PO SCH (08:55)
[2021-11-11] MEDS: Docusate Sodium 100 MG Cap PO SCH ×2 (08:55→21:41)
[2021-11-11] MEDS: Calcium Carbonate/Vitamin D3 1500 MG-400 Units Tab PO SCH ×2 (08:55→09:06)
[2021-11-11] MEDS: Hydrochlorothiazide 25 MG Tab PO SCH (08:56)
[2021-11-11] MEDS: Polyethylene Glycol 3350 Powder 17 GM Packet PO SCH (08:56)
[2021-11-11] MEDS: Aspirin 81 MG Tab.EC PO SCH (08:56)
[2021-11-11] MEDS: oxyCODONE 5 MG Tab PO PRN (21:41)
[2021-11-12] MEDS: Heparin Sodium 5,000 Units/ML Vial SUBCUT SCH ×3 (00:40→23:29)
[2021-11-12] MEDS: oxyCODONE 5 MG Tab PO PRN ×3 (06:24→23:29)
[2021-11-12] MEDS: Omeprazole 20 MG Cap.CR PO SCH (06:30)
[2021-11-12] MEDS: Aspirin 81 MG Tab.EC PO SCH (09:37)
[2021-11-12] MEDS: Hydrochlorothiazide 25 MG Tab PO SCH ×2 (09:37→09:51)
[2021-11-12] MEDS: Polyethylene Glycol 3350 Powder 17 GM Packet PO SCH (09:38)
[2021-11-12] MEDS: Calcium Carbonate/Vitamin D3 1500 MG-400 Units Tab PO SCH (09:38)
[2021-11-12] MEDS: Docusate Sodium 100 MG Cap PO SCH ×2 (09:38→20:08)
[2021-11-12] MEDS: Metoprolol Succinate 50 MG Tab.ER PO SCH (09:51)
[2021-11-13] MEDS: Omeprazole 20 MG Cap.CR PO SCH (06:44)
[2021-11-13] MEDS: Calcium Carbonate/Vitamin D3 1500 MG-400 Units Tab PO SCH (08:49)
[2021-11-13] MEDS: Metoprolol Succinate 50 MG Tab.ER PO SCH (08:50)
[2021-11-13] MEDS: Aspirin 81 MG Tab.EC PO SCH (08:50)
[2021-11-13] MEDS: Docusate Sodium 100 MG Cap PO SCH (08:53)
[2021-11-13] MEDS: Polyethylene Glycol 3350 Powder 17 GM Packet PO SCH (08:53)
[2021-11-13] MEDS ORDERED: Polyethylene Glycol 3350 Powder 17 GM Packet PO PRN (08:59)
[2021-11-13] MEDS: oxyCODONE 5 MG Tab PO PRN (11:06)
[2021-11-13] MEDS: Heparin Sodium 5,000 Units/ML Vial SUBCUT SCH (12:12)
[2021-11-14] MEDS ORDERED: Docusate Sodium 100 MG Cap PO SCH (09:00)
== END 2021-11-13 14:00 | DRG 563 ==
LOC: MW.ED 18:51 → MW.MS 22:36
PROVIDERS: ADMIT Internal Medicine; ATTEND Internal Medicine
DX: S82.101A Unspecified fracture of upper end of right tibia, initial encounter for closed fracture (principal); W01.0XXA Fall on same level from slipping, tripping and stumbling without subsequent striking against object, initial encounter; I10 Essential (primary) hypertension; K44.9 Diaphragmatic hernia without obstruction or gangrene; H91.90 Unspecified hearing loss, unspecified ear; H54.7 Unspecified visual loss; N93.8 Other specified abnormal uterine and vaginal bleeding; G89.29 Other chronic pain; M54.9 Dorsalgia, unspecified; Z20.822 Contact with and (suspected) exposure to COVID-19; Z79.899 Other long term (current) drug therapy; Z78.9 Other specified health status; Z79.82 Long term (current) use of aspirin; Z88.2 Allergy status to sulfonamides; Z86.19 Personal history of other infectious and parasitic diseases
CPT/HCPCS: 36415; 70450; 71045; 72125; 72170; 73560; 80053; 85025; 99285; A9270; J2270; J3490; U0002; 51701; 51798; 80048; 83735; 84484; 93005; 97110-GP; 97112-GP; 97140-GP; 97163-GP; 97530-GP; 99284; J1170; J1644

== ENCOUNTER 2022-02-05 00:30 | Emergency (ER) | payer MEDICARE, OTHER ==
[2022-02-05] MEDS ORDERED: Sodium Chloride 0.9% 2.5 ML Syringe FLUSH PRN (00:53)
[2022-02-05] MEDS ORDERED: Sodium Chloride 0.9% 10 ML Syringe FLUSH PRN (00:53)
[2022-02-05] MEDS ORDERED: Ondansetron 4 MG/2 ML SDV IVPUSH ONE (01:06)
[2022-02-05] MEDS ORDERED: Pantoprazole 40 MG in Sodium Chloride 0.9% 10 ML IVPUSH ONE (01:06)
[2022-02-05 01:20] LABS: CARBON DIOXIDE,CO2 28.4 mmol/L (21.0-32.0); POTASSIUM,K 3.7 mmol/L (3.5-5.1)
[2022-02-05] MEDS ORDERED: Alum Hydro/Mag Hydro/Simeth XS 15 ML, Lidocaine 2% 5 ML PO ONE ×2 (02:07)
== END 2022-02-05 08:05 | disposition home or self-care (01) ==
LOC: MW.ED 00:30
DX: K29.70 Gastritis, unspecified, without bleeding (principal); I10 Essential (primary) hypertension; Z88.2 Allergy status to sulfonamides; Z79.899 Other long term (current) drug therapy; Z79.82 Long term (current) use of aspirin
CPT/HCPCS: 36415; 80053; 83690; 85025; 85610; 85730; 96374; 96375; 99284; A9270; C9113; J2405; J3490; 93005

== ENCOUNTER 2022-02-20 19:03 | Inpatient (IN) | payer MEDICARE, OTHER ==
[2022-02-20] MEDS ORDERED: Sodium Chloride 0.9% 10 ML Syringe FLUSH PRN (19:48)
[2022-02-20] MEDS ORDERED: Sodium Chloride 0.9% 2.5 ML Syringe FLUSH PRN (19:48)
[2022-02-20] MEDS ORDERED: cefTRIAXone 1 GM in Sodium Chloride 0.9% 50 ML IV ONE (19:50)
[2022-02-20] MEDS ORDERED: Sodium Chloride 0.9% 500 ML IV SCH (20:00)
[2022-02-20 20:54] LABS: CARBON DIOXIDE,CO2 28.4 mmol/L (21.0-32.0); POTASSIUM,K 3.2 mmol/L (3.5-5.1)
[2022-02-20] MEDS ORDERED: Alum Hydro/Mag Hydro/Simeth XS 15 ML, Lidocaine 2% 5 ML PO ONE ×2 (22:33)
[2022-02-20] MEDS ORDERED: Enoxaparin 60 MG/0.6 ML Syringe SUBCUT ONE (23:36)
[2022-02-21] MEDS ORDERED: Ibuprofen 600 MG Tab PO ONE (00:09)
[2022-02-21 05:59] LABS: BLOOD UREA NITROGEN,BUN 20 mg/dL (7.0-18.0); CARBON DIOXIDE,CO2 27.5 mmol/L (21.0-32.0); CHLORIDE,CL 106 mmol/L (98-107); GLUCOSE RANDOM 116 mg/dL (74-106); SODIUM,NA 141 mmol/L (136-145)
[2022-02-21 06:01] LABS: ESTIMATED GFR 50 mL/min (>60)
[2022-02-21] MEDS ORDERED: Potassium Chloride 20 MEQ Tab.ER PO ONE (06:54)
[2022-02-21] MEDS ORDERED: Ondansetron 4 MG/2 ML SDV IVPUSH PRN (10:00)
[2022-02-21] MEDS ORDERED: Albuterol/Ipratropium 3.0-0.5 MG/3 ML Neb Soln NEB PRN (10:00)
[2022-02-21] MEDS ORDERED: Acetaminophen 325 MG Tab PO PRN (10:00)
[2022-02-21] MEDS ORDERED: Acetaminophen/Codeine 300-30 MG Tab PO PRN (10:09)
[2022-02-21] MEDS ORDERED: Polyethylene Glycol 3350 Powder 17 GM Packet PO PRN (10:13)
[2022-02-21] MEDS: Aspirin 81 MG Tab.EC PO SCH (10:55)
[2022-02-21] MEDS: DULoxetine 30 MG Cap PO SCH (10:55)
[2022-02-21] MEDS: Pantoprazole 40 MG Tab.CR PO SCH (10:55)
[2022-02-21] MEDS: Metoprolol Succinate 50 MG Tab.ER PO SCH (10:58)
[2022-02-21] MEDS: Furosemide 20 MG Tab PO SCH (12:41)
[2022-02-21] MEDS: cefTRIAXone 1 GM in Sodium Chloride 0.9% 50 ML IV SCH (19:27)
[2022-02-21] MEDS ORDERED: Enoxaparin 40 MG/0.4 ML Syringe SUBCUT SCH (23:00)
[2022-02-22 07:24] LABS: BLOOD UREA NITROGEN,BUN 16 mg/dL (7.0-18.0); CARBON DIOXIDE,CO2 29.5 mmol/L (21.0-32.0); CHLORIDE,CL 107 mmol/L (98-107); GLUCOSE RANDOM 103 mg/dL (74-106); POTASSIUM,K 3.5 mmol/L (3.5-5.1); SODIUM,NA 142 mmol/L (136-145)
[2022-02-22 07:29] LABS: ESTIMATED GFR 56 mL/min (>60)
[2022-02-22] MEDS: Aspirin 81 MG Tab.EC PO SCH (08:43)
[2022-02-22] MEDS: Metoprolol Succinate 50 MG Tab.ER PO SCH (08:43)
[2022-02-22] MEDS: Furosemide 20 MG Tab PO SCH (08:43)
[2022-02-22] MEDS: Pantoprazole 40 MG Tab.CR PO SCH (08:43)
[2022-02-22] MEDS: DULoxetine 30 MG Cap PO SCH (08:43)
[2022-02-22] MEDS: Apixaban 5 MG Tab PO SCH ×2 (10:36→20:31)
[2022-02-22] MEDS: cefTRIAXone 1 GM in Sodium Chloride 0.9% 50 ML IV SCH (20:25)
[2022-02-23 06:40] LABS: BLOOD UREA NITROGEN,BUN 13 mg/dL (7.0-18.0); CARBON DIOXIDE,CO2 28.6 mmol/L (21.0-32.0); CHLORIDE,CL 104 mmol/L (98-107); GLUCOSE RANDOM 105 mg/dL (74-106); POTASSIUM,K 3.5 mmol/L (3.5-5.1); SODIUM,NA 139 mmol/L (136-145)
[2022-02-23 06:44] LABS: ESTIMATED GFR 63 mL/min (>60)
[2022-02-23] MEDS: Metoprolol Succinate 50 MG Tab.ER PO SCH (10:07)
[2022-02-23] MEDS: Aspirin 81 MG Tab.EC PO SCH (10:08)
[2022-02-23] MEDS: Pantoprazole 40 MG Tab.CR PO SCH (10:08)
[2022-02-23] MEDS: Furosemide 20 MG Tab PO SCH (10:08)
[2022-02-23] MEDS: Apixaban 5 MG Tab PO SCH ×2 (10:09→20:05)
[2022-02-23] MEDS: DULoxetine 30 MG Cap PO SCH (10:42)
[2022-02-23] MEDS: cefTRIAXone 1 GM in Sodium Chloride 0.9% 50 ML IV SCH (20:05)
[2022-02-24 06:29] LABS: BLOOD UREA NITROGEN,BUN 11 mg/dL (7.0-18.0); CARBON DIOXIDE,CO2 28.9 mmol/L (21.0-32.0); CHLORIDE,CL 101 mmol/L (98-107); GLUCOSE RANDOM 113 mg/dL (74-106); POTASSIUM,K 3.4 mmol/L (3.5-5.1); SODIUM,NA 138 mmol/L (136-145)
[2022-02-24 07:23] LABS: ESTIMATED GFR 73 mL/min (>60)
[2022-02-24] MEDS ORDERED: Potassium Chloride 20 MEQ Tab.ER PO ONE (08:22)
[2022-02-24] MEDS: DULoxetine 30 MG Cap PO SCH (08:29)
[2022-02-24] MEDS: Furosemide 20 MG Tab PO SCH (08:30)
[2022-02-24] MEDS: Metoprolol Succinate 50 MG Tab.ER PO SCH (08:30)
[2022-02-24] MEDS: Aspirin 81 MG Tab.EC PO SCH (08:31)
[2022-02-24] MEDS: Pantoprazole 40 MG Tab.CR PO SCH (08:32)
[2022-02-24] MEDS: Apixaban 5 MG Tab PO SCH (08:32)
[2022-02-24] MEDS ORDERED: Polyethylene Glycol 3350 Powder 17 GM Packet PO PRN (10:05)
[2022-03-01] MEDS ORDERED: Apixaban 5 MG Tab PO SCH (09:00)
== END 2022-02-24 14:00 | disposition home health service (06) | DRG 683 ==
LOC: MW.ED 19:03 → MW.MS 23:38
PROVIDERS: ADMIT Internal Medicine; ATTEND Internal Medicine
DX: N17.9 Acute kidney failure, unspecified (principal); L03.115 Cellulitis of right lower limb; G93.41 Metabolic encephalopathy; R53.1 Weakness; S82.101A Unspecified fracture of upper end of right tibia, initial encounter for closed fracture; N39.0 Urinary tract infection, site not specified; I82.4Z1 Acute embolism and thrombosis of unspecified deep veins of right distal lower extremity; Z20.822 Contact with and (suspected) exposure to COVID-19; I10 Essential (primary) hypertension; G62.9 Polyneuropathy, unspecified; H54.7 Unspecified visual loss; H91.90 Unspecified hearing loss, unspecified ear; E87.6 Hypokalemia; Z97.4 Presence of external hearing-aid; R31.9 Hematuria, unspecified; K44.9 Diaphragmatic hernia without obstruction or gangrene; N93.8 Other specified abnormal uterine and vaginal bleeding; G89.29 Other chronic pain; M54.9 Dorsalgia, unspecified; Z79.01 Long term (current) use of anticoagulants; Z86.19 Personal history of other infectious and parasitic diseases; Z79.899 Other long term (current) drug therapy; Z88.2 Allergy status to sulfonamides; Z79.82 Long term (current) use of aspirin
CPT/HCPCS: 36415; 71045; 73502; 73590; 73630; 80053; 81001; 82550; 83605; 83690; 83880; 84484; 85025; 85610; 87040 ×2; 87086; 93005 ×2; 96365; 99285; A9270 ×2; J0696; J3490; J7040; U0002; 80048; 83735; 93010; 93971-26-RT; 93971-RT; 97110-GP; 97162-GP; 99221; 99232; 99239; 99284; J1650